=== PATIENT | male | born 1960 | race Caucasian/White ===

== ENCOUNTER 2022-12-26 05:16 | Emergency (ER) | payer BC, SELFPAY ==
[2022-12-26] VITALS (11 sets, daily range): BP systolic 160–175; BP diastolic 97–99; PULSE 66–91; RESP 17–20; TEMP 37.2; O2SAT 93–100
--- NOTE | ~2022-12-26 | CT_ITS ---
EXAMINATION: CT abdomen pelvis wo con DATE: 12/26/2022 06:25 INDICATION: Left flank pain. TECHNIQUE: Computed tomography (CT) of the abdomen and pelvis was performed without intravenous contr ast. Automated exposure control and iterative reconstruction technique were employed. The dose-length product was 1069.74 mGy-cm. COMPARISON: None. FINDINGS: The visualized portions of the lung bases demonstrate mild atelectasis. No pleural effusion . The heart size is normal. There are coronary artery calcifications. No pericardial effusion. There is a small sliding hiatal hernia. Calcifications in the liver and spleen are consistent with old gran ulomatous disease. There are changes of cholecystectomy. The pancreas, adrenal glands, and right kidn ey are normal. There is a 4 mm stone in left kidney. There is mild left hydronephrosis and hydrourete r. There is a 3 mm stone at left ureterovesicular junction. The prostate is mildly enlarged. There is diverticulosis of the colon without evidence of diverticulitis. There are surgical changes of the pr oximal colon. There is an umbilical hernia containing fat. There are no pathologically enlarged lymph nodes. There is no free intraperitoneal fluid. There is a left inguinal hernia containing fat. There is moderate lumbar spondylosis. There are bridging endplate osteophytes at multiple levels in the sp ine, consistent with diffuse idiopathic skeletal hyperostosis (DISH). IMPRESSION: 1. 3 mm stone at left ureterovesicular junction with mild left hydronephrosis and hydroureter. 2. Nonobstructing left kidney stone. Reviewed, dictated and finalized at location A. RONMENTAL ENGINEER SCIENTIST IMPRESSION: 1. 3 mm stone at left ureterovesicular junction with mild left hydronephrosis a nd hydroureter. 2. Nonobstructing left kidney stone.
[2022-12-26] MEDS: MORPHINE SULFATE (*CRX) 4 MG/ML INJ IV PUSH (06:16)
[2022-12-26] MEDS: ONDANSETRON INJ 4 MG/2 ML VIAL IV PUSH (06:16)
[2022-12-26] MEDS: SODIUM CHLORIDE 0.9% IV 1,000 ML 999 ML IV CONT (06:19)
--- NOTE | 2022-12-26 06:25 | ED.GENADULT ---
HPI - General Adult General Chief complaint: Unspecified <John Ko MD - Last Filed: 12/26/22 06:26> Stated complaint: pain from left flank to left lower abd <John Ko MD - Last Filed: 12/26/22 06:26> Time Seen by Provider: 12/26/22 05:59 <John Ko MD - Last Filed: 12/26/22 06:26> History of Present Illness HPI narrative: Patient 62-year-old gentleman who presents the emergency department with chief complaint of left-sided flank pain. Patient reports that he started having pain in the left flank. It radiates to the left lower quadrant. The patient reports the pain is sharp reports that is not improved by anything. The patient states that he has felt a little nauseated with this the patient reports that he talked to a family member who works in healthcare that suggested that this could be a kidney stone. Patient reports no prior history of kidney stone denies fever. <John Ko MD - Last Filed: 12/26/22 06:26> Related Data Allergies/adverse reactions: Allergies Allergy/AdvReac Type Severity Reaction Status Date / Time naproxen Allergy Intermediate HIVES, Verified 12/26/22 05:40 SWELLING <John Ko MD - Last Filed: 12/26/22 06:26> Review of Systems Review of Systems: A 10 system review of systems was completed on the patient and is negative except for what is stated in the HPI. Nursing and ancillary documentation was reviewed. <John Ko MD - Last Filed: 12/26/22 06:26> Exam Narrative: GENERAL: Well-appearing, well-nourished, and in moderate acute pain distress. HEAD: Normocephalic, atraumatic. EYES: PERRLA and EOMI. ENT: Nares clear, no rhinorrhea or epistaxis. Mucous membranes moist. NECK: Supple. CHEST: Clear to auscultation. No respiratory distress. HEART: Regular rate and rhythm. No murmur heard. Normal peripheral pulses. ABDOMEN: Soft, nontender, nondistended, normal active bowel sounds. EXTREMITIES: Normal range of motion. No edema. SKIN: Warm, dry, no rash. NEURO: No focal deficits. Alert and oriented x3. PSYCH: Normal mood and affect. <John Ko MD - Last Filed: 12/26/22 06:26> Course Vital Signs Vital signs: Vital Signs Temperature 98.9 F 12/26/22 05:18 Pulse Rate 91 12/26/22 05:18 Respiratory Rate 20 12/26/22 05:18 Blood Pressure 175/97 H 12/26/22 05:18 Pulse Oximetry 99 12/26/22 05:18 Oxygen Delivery Room Air 12/26/22 05:18 Temperature 98.9 F 12/26/22 05:18 Pulse Rate 66 12/26/22 05:38 Respiratory Rate 17 12/26/22 05:38 Blood Pressure 160/99 H 12/26/22 05:38 Pulse Oximetry 100 12/26/22 05:38 Oxygen Delivery Room Air 12/26/22 05:18 <John Ko MD - Last Filed: 12/26/22 06:26> Vital Signs Temperature 98.9 F 12/26/22 05:18 Pulse Rate 91 12/26/22 05:18 Respiratory Rate 20 12/26/22 05:18 Blood Pressure 175/97 H 12/26/22 05:18 Pulse Oximetry 99 12/26/22 05:18 Oxygen Delivery Room Air 12/26/22 05:18 Temperature 98.9 F 12/26/22 05:18 Pulse Rate 66 12/26/22 05:38 Respiratory Rate 17 12/26/22 05:38 Blood Pressure 160/99 H 12/26/22 05:38 Pulse Oximetry 100 12/26/22 05:38 Oxygen Delivery Room Air 12/26/22 05:18 <Joy Velazquez MD - Last Filed: 12/26/22 08:54> Medical Decision Making MDM Narrative Medical decision making narrative: ED COURSE AND MEDICAL DECISION MAKIN-year-old male presenting to the emergency department for acute flank pain, symptoms are concerning for likely renal colic versus pyelonephritis. Urinalysis is ordered. IV morphine / zofran given. CT scan of the abdomen/pelvis is ordered. Labs are remarkable for: no WBC/bacteria in UA; Cr wnl. CT scan of the abdomen/pelvis is reviewed by myself and interpreted by radiology: L UVJ 3mm stone On reevaluation, the patient still having some pain but appears more comf
[2022-12-26 06:48] LABS: Basophils Absolute Auto 0.1 K/mm3 (0.0-0.1); Basophils Percent Auto 0.6 % (0.2-1.2); Eosinophils Absolute Auto 0.1 K/mm3 (0-0.3); Eosinophils Percent Auto 0.6 % (0-4.4); Hematocrit 43.1 % (42.0-52.0); Immature Granulocyte Absolute 0.09 K/mm3 (0.00-0.031); Immature Granulocyte Percent A 0.8 % (0-0.5); Lymphocytes Percent Auto 14.2 % (18.3-44.2); Mean Corpuscular HGB Conc 32.5 g/dl (32-36); Mean Corpuscular Hemoglobin 29.9 pg (26-34); Mean Corpuscular Volume 92.1 fl (80-100); Mean Platelet Volume 10.6 fl (7.4-10.4); Monocytes Absolute Auto 0.8 K/mm3 (0.1-0.6); Monocytes Percent Auto 6.8 % (2.6-8.5); Neutrophils Absolute Auto 9.2 K/mm3 (1.3-6.7); Platelet Count Result 299 k/mm3 (150-375); Red Blood Count 4.68 M/mm3 (4.6-6.20); Red Cell Distribution Width 13.4 % (11.5-14.5)
[2022-12-26 06:54] LABS: Alanine Aminotransferase 44 U/L (6-50); Albumin Level 4.5 g/dL (3.5-5.1); Alkaline Phosphatase 82 U/L (38-126); Anion Gap 11 mmol/L (8-16); Aspartate Amino Transferase 33 U/L (17-59); Bilirubin,Total 1.2 mg/dL (0.2-1.3); Blood Urea Nitrogen 17 mg/dL (9-20); Calcium 9.5 mg/dL (8.4-10.2); Carbon Dioxide 26 mmol/L (22-30); Chloride 102 mmol/L (98-107); Estimated Glomerular Filt Rate > 60; Glucose 200 mg/dL (65-110); Lipase 40 U/L (23-300); Potassium 3.3 mmol/L (3.4-5.0); Sodium 139 mmol/L (137-145)
[2022-12-26] MEDS: HYDROmorphone HCL INJ (*CRX) 1 MG/ML SYR IV PUSH (07:03)
[2022-12-26 08:25] LABS: Appearance Urine Clear (Clear); Bilirubin Urine Negative (Negative); Blood Urine Negative (Negative); Color Urine Yellow (Yellow); Glucose Urine UA Trace mg/dL (Negative); Ketones Urine 1+ mg/dL (Negative); Leukocyte Esterase Ur Negative LEU/UL (Negative); Nitrate Urine Negative (Negative); Protein Urine Negative (Negative); Specific Grav Ur 1.019 (1.001-1.035); Urobilinogen Urine 0.2 mg/dL (<2.0)
[2022-12-26 08:34] LABS: Add Urine Microscopic? NO
[2022-12-26] MEDS: POTASSIUM CHLORIDE 20 MEQ PACKET (FOR LIQUID) 40 MEQ PO (09:18)
[2022-12-26] MEDS: TAMSULOSIN HCL 0.4 MG CAPSULE PO (09:18)
== END 2022-12-26 09:20 | disposition home or self-care (01) ==
PROVIDERS: Emergency Medicine; Emergency Provider Emergency Medicine; PCP Family Medicine
DX: N13.2 Hydronephrosis with renal and ureteral calculous obstruction (principal)
CPT/HCPCS: 36415; 74176; 80053; 81003; 83690; 85025; 96361; 96374; 96375; 99284; A9270; J1170; J2270; J2405; J7030

== ENCOUNTER 2024-01-03 09:39 | Outpatient (CLI) | payer BC, SELFPAY ==
--- NOTE | ~2024-01-03 | XR_ITS ---
XR abdomen/kub 1V Ordering provider: Jermain Mcconnell MD History: . HX OF KIDNEY STONES X 1 YEAR AGO, NO COMPLAINTS TODAY . Comparison: None. FINDINGS: BOWEL: Nonobstructive bowel gas pattern. ORGANOMEGALY: None. SIGNIFICANT PATHOLOGIC CALCIFICATIONS: None. OTHER: No free air is seen under the diaphragm. Degenerative changes of the spine. Mild osteoarthriti c changes of the hips. IMPRESSION: NO ACUTE ABDOMINAL FINDINGS. Reviewed, dictated and finalized at location A. EPERSON
== END 2024-01-03 09:40 | disposition home or self-care (01) ==
LOC: ANHIMG 09:43
PROVIDERS: PCP Family Medicine; Visit Provider Urology
DX: Z87.442 Personal history of urinary calculi (principal)
CPT/HCPCS: 74018

== ENCOUNTER 2024-12-28 13:41 | Outpatient (CLI) | payer MEDICARE, BC, SELFPAY ==
--- NOTE | ~2024-12-28 | CT_ITS ---
CT ABDOMEN AND PELVIS WITHOUT CONTRAST Clinical History: Hx of kidney stones Comparison: CT 12/26/2022 Abdominal film 01/03/2024 Technique: Unenhanced axial images lung bases to symphysis pubis Coronal, sagittal reformats CT images acquired with automatic exposure control for dose reduction DLP: 326 mGy-cm Findings: Without intravenous contrast, sensitivity for detecting visceral parenchymal abnormalities decreased. Lung bases: Clear. Visualized heart and pericardium: Unremarkable. Liver: Steatosis. Gallbladder: Removed. Spleen: Unremarkable. Pancreas: Unremarkable. Adrenal glands: Unremarkable. Kidneys: Right kidney- No hydronephrosis. No renal stones. Left kidney- No hydronephrosis. No renal stones. Parapelvic cysts. Chronic mild perinephric stranding. Distal esophagus/stomach: Unremarkable. Small bowel loops: Normal caliber and wall thickness. Colon: Diverticula. Suture line right side. Nodes: No enlarged nodes. Peritoneum: No ascites. No free intraperitoneal air. Urinary bladder: 7 mm stone left UVJ. Prostate: Unremarkable. Bones: No acute bony abnormality. Soft tissues: Umbilical hernia with fat. Unopacified abdominal aorta: No aneurysmal dilatation. IMPRESSION: 1. 7 mm stone left UVJ, but no associated hydronephrosis. 2. Additional findings as above. Reviewed, dictated and finalized at location R. RAM TECHNICIAN
--- OUTSIDE RECORDS SUMMARY | 2024-12-28 14:16 | XMS_ITS | Encounter Summary ---
Author Organization [facility] Address [address] [place] [address] Phone Care Team Providers Care Property Inspector Name Role Phone Reese Prince MD Primary Care Provider [phone] Juana Willson Primary Care Provider + Reese Prince MD Primary Care Provider [phone] Encounter Details Date Type Department Care Team (Latest Contact Info) Description 05/20/2017 Orders Only [facility] CONVERSION Scanning, Provider Social History Tobacco Use Types Packs/Day Years Used Date Smoking Tobacco: Never Sex and Gender Information Value Date Recorded Sex Assigned at Not on file Legal Sex Male 7:18 PM HOOK UP Gender Identity Not on file Sexual Orientation Not on file documented as of this encounter Plan of Treatment Upcoming Encounters Date Type Department Care Team (Latest Contact Info) Description 03/19/2025 7:30 AM HOOK UP Hospital Encounter [facility] OR [address] [place] [phone] David Smith MD [address] [place] [address] DR RODR[address]Z [address] [place] [address] 03/19/2025 7:30 AM HOOK UP - 03/19/2025 10:05 AM HOOK UP Surgery [facility] OR [address] [place] [address] David Smith MD [address] [place] [address] DR R[address]UE[address] [place] [phone] REVERSE LEFT TOTAL SHOULDER ARTHROPLASTY Scheduled Procedures Name Priority Associated Diagnoses Date/Ti me ARTHROPLASTY SHOULDER - REVERSE TOTAL Traumatic rotator cuff tear, left, subsequent encounter 03/19/2025 7:30 AM HOOK UP documented as of this encounter Procedures Procedure Name Priority Date/Time Associated Diagnosis Comments VASCULAR LABORATORY REPORT 05/30/2017 11:48 AM CDT VASCULAR LABORATORY REPORT 05/20/2017 8:06 AM CDT documented in this encounter Results * VASCULAR LABORATORY REPORT (05/30/2017 11:48 AM CDT) Anatomical Region Laterality Modality Ultrasound us Provider Scanning CV VASCULAR PROCEDURES Final R esult * VASCULAR LABORATORY REPORT (05/20/2017 8:06 AM CDT) Anatomical Region Laterality Modality Ultrasound us Provider Scanning CV VASCULAR PROCEDURES Final R esult documented in this encounter Visit Diagnoses Not on filedocumented in this encounter Care Teams Property Inspector Relationship Specialty Start Date End Date Reese Prince MD PCP - General 02/24/17 03/23/18 Juana Willson PA PCP - General 03/24/18 06/11/19 Reese Prince MD [address] [facility] [address] ROD[address]Z [address] [place] [address] PCP - General Family Medicine 12/26/24 documented as of this encounter
--- OUTSIDE RECORDS SUMMARY | 2024-12-28 14:16 | XMS_ITS | Encounter Summary ---
Author Organization [facility] Care Team Providers Care Perinatal Breastfeeding Assistant Name Role Phone Unknown, Notinfile Primary Care Provider Unavail able Reese Prince MD Primary Care Provider [phone] Juana Willson Primary Care Provider + Reese Prince MD Primary Care Provider [phone] Encounter Details Date Type Department Care Team (Latest Contact Info) Description 01/12/2017 Orders Only [facility] CLINCONV ProviderAlban MD [address] [place] [address] Social History Tobacco Use Types Packs/Day Years Used Date Smoking Tobacco: Never Assessed Sex and Gender Information Value Date Recorded Sex Assigned at Not on file Legal Sex Male 7:18 PM MARKETING OPERATIONS ANALYST Gender Identity Not on file Sexual Orientation Not on file documented as of this encounter Plan of Treatment Upcoming Encounters Date Type Department Care Team (Latest Contact Info) Description 03/19/2025 7:30 AM MARKETING OPERATIONS ANALYST Hospital Encounter [facility] [place] [address] [place] [address] David Smith MD [address] [place] [address] DR [address] [place] [address] 03/19/2025 7:30 AM MARKETING OPERATIONS ANALYST - 03/19/2025 10:05 AM MARKETING OPERATIONS ANALYST Surgery [facility] OR [address] [place] [address] David Smith MD [address] [place] [address] DR R[address] [place] [address] REVERSE LEFT TOTAL SHOULDER ARTHROPLASTY Scheduled Procedures Name Priority Associated Diagnoses Date/Ti me ARTHROPLASTY SHOULDER - REVERSE TOTAL Traumatic rotator cuff tear, left, subsequent encounter 03/19/2025 7:30 AM MARKETING OPERATIONS ANALYST documented as of this encounter Procedures Procedure Name Priority Date/Time Associated Diagnosis Comments PROCEDURE - RESULT 01/12/2017 12 :00 AM MARKETING OPERATIONS ANALYST PROCEDURE - RESULT 01/12/2017 12 :00 AM MARKETING OPERATIONS ANALYST documented in this encounter Results * PROCEDURE - RESULT (01/12/2017 12:00 AM MARKETING OPERATIONS ANALYST) Narrative 01/12/2017 12:00 AM MARKETING OPERATIONS ANALYST Ordered by an unspecified provider. Historical Provider Final Res ult * PROCEDURE - RESULT (01/12/2017 12:00 AM MARKETING OPERATIONS ANALYST) Narrative 01/12/2017 12:00 AM MARKETING OPERATIONS ANALYST Ordered by an unspecified provider. Historical Provider Final Res ult documented in this encounter Visit Diagnoses Not on filedocumented in this encounter Care Teams Perinatal Breastfeeding Assistant Relationship Specialty Start Date End Date Unknown, Notinfile PCP - General 01/22/17 02/23/17 Reese Prince MD PCP - General 02/24/17 03/23/18 Juana Willson PA PCP - General 03/24/18 06/11/19 Reese Prince MD [address] [facility] [place] [address] PCP - General Family Medicine 12/26/24 documented as of this encounter
--- OUTSIDE RECORDS SUMMARY | 2024-12-28 14:16 | XMS_ITS | Clinical Summary ---
Author Organization [facility] Address [address] [facility] [place] [address] Care Team Providers Care Grooving Machine Operator Name Role Phone Unavailable Primary Care Provider Unavailabl e Source Comments [facility],non-owned Affiliates and Associated Physician Practices is amultiple site organization consisting of ambulatory clinics and hospital sitesin [place], [place], [place]. This disclosure is being madepursuant to the Care Everywhere program and may not contain all information available regarding this patient. Last updated 17.[facility] Social History Tobacco Use Types Packs/Day Years Used Date Smoking Tobacco: Never Assessed Sex and Gender Information Value Date Recorded Sex Assigned at Not on file Legal Sex Male 4:31 PM CDT Gender Identity Not on file Sexual Orientation Not on file Plan of Treatment Health Maintenance Due Date Last Done Comments COLOGUARD (AGES 45-75) - COL ON CA SCREENING 1960 COLON MONITORING 1960 COLONOSCOPY - COLON CA SCREENING 1960 CT COLONOGRAPHY - COLON CA SCREENING 1960 Colorectal Cancer Screening 1960 FIT - COLON CA SCREENING 1960 FLEX SIG - COLON CA SCREENING 1960 LIPID TESTING 1960 HIV SCREENING 01/25/1975 HEPATITIS C SCREENING 01/21/1978 DTAP/TDAP/TD VACCINES (1 - Tdap) 01/25/1979 PNEUMOCOCCAL VACCINE 50+ (1 of 1 - PCV) 01/25/2010 ZOSTER VACCINE (1 of 2) 01/25/2010 DEPRESSION SCREENING 02/16/2024 COVID-19 VACCINE (1 - 2023-2 5 season) 2024 INFLUENZA VACCINE (#1) 2024 Respiratory Syncytial Virus (RSV) Vaccine Pt: or over 60 yrs (1 - 1-dose 75+ series) 01/25/2035 HEPATITIS B VACCINE Aged Out No longe r eligible based on patient's age to complete this topic HIB VACCINE Aged Out No longer eligi ble based on patient's age to complete this topic HPV VACCINE Aged Out No longer eligi ble based on patient's age to complete this topic MENINGOCOCCAL (Group B) VACC INE SHARED DECISION-MAKING Aged Out No longer eligibl e based on patient's age to complete this topic MENINGOCOCCAL GROUPS A/C/Y/W VACCINE Aged Out No longer eligible b ased on patient's age to complete this topic Insurance [facility] Address: [facility] [address] [place] [address]
--- OUTSIDE RECORDS SUMMARY | 2024-12-28 14:16 | XMS_ITS | Encounter Summary ---
Author Organization [facility] Address [address] [facility] [place] [address] Care Team Providers Care Security Compliance Engineer Name Role Phone Unavailable Primary Care Provider Unavailabl e Encounter Details Date Type Department Care Team (Late st Contact Info) Description 10/30/2022 Lab Requisition [facility] [address] [facility] [place] [id number] Chris Snyder MD [address] [facility] [place] [address] Social History Tobacco Use Types Packs/Day Years Used Date Smoking Tobacco: Never Assessed Sex and Gender Information Value Date Recorded Sex Assigned at Not on file Legal Sex Male 4:31 PM CDT Gender Identity Not on file Sexual Orientation Not on file documented as of this encounter Plan of Treatment Not on file documented as of this encounter Procedures Procedure Name Priority Date/Time Associated Diagnosis Comments DERMATOPATHOLOGY Routine 10/30/2022 3:33 AM CDT documented in this encounter Results * DERMATOPATHOLOGY (10/30/2022 3:33 AM CDT) Case Report Dermatopathology Report Case: [id number] Authorizing Provider: Chris Snyder MD Collected: 10/30/2022 03:33 AM Ordering Location: [facility] Received: 11/02/2022 06:06 AM Pathologist: Jody Thomas MD Specimen: Skin, right volar FA 3 4:32 PM CDT DERMATOPATHOLOGY LABORATORY Final Diagnosis Specimen A. SKIN, right volar FA: SUBACUTE SPONGIOTIC DERMATITIS (L30.8) (see microscopic description and comment) 3 4:32 PM CDT DERMATOPATHOLOGY LABORATORY at 1632 CDT Clinical History PMLE vs Eczema vs Allergic contact (ACD) Path#[id number] 3 4:32 PM CDT DERMATOPATHOLOGY LABORATORY Gross Description Specimen A: Received is one formalin filled container labeled with the patient's name and designated right volar FA. The specimen consists of a shave biopsy measuring 7x5x1 mm. Jar 0. 3 4:32 PM CDT DERMATOPATHOLOGY LABORATORY Microscopic Description Specimen A. SKIN, right volar FA: There is focal parakeratosis and spongiosis of the epidermis. In the dermis there is a mainly superficial perivascular lymphoid infiltrate. Eosinophils are not seen. Focal mild superficial dermal edema is present. Periodic acid-Derek (PAS) stain fails to highlight fungal elements or significant basement membrane thickening in the available sections. COMMENT: These histologic differential diagnosis includes an eczematous dermatitis, and a hypersensitivity reaction, such as to contact or drug, although less likely given the lack of eosinophils. Although less favored given the lack of more significant papillary dermal edema, early polymorphous light eruption cannot be entirely excluded. 3 4:32 PM CDT DERMATOPATHOLOGY LABORATORY Disclaimer An external and internal positive and negative controls are appropriate for the histochemical, immunohistochemical and immunofluorescence stain(s) in this case (if any), except where stated explicitly. The performance characteristics of the stain(s) cited in this report were developed and its performance characteristic determined by the Dermatopathology Laboratory at [facility], directed by Dr. Irasema Caban. These tests need not be, and therefore are not, approved by the [place] Food and Drug Administration. The tests are used for clinical purposes. Billing Codes Specimen Charges Stain Charges 32047 1 11097 1 3 4:32 PM CDT DERMATOPATHOLOGY LABORATORY Embedded Images 3 4:32 PM CDT DERMATOPATHOLOGY LABORATORY Pathology/Cytolo gy TISSUE SPECIMEN FROM SKIN / Unknown 10/30/2022 3:33 AM CDT 11/02/2022 6:06 AM CDT us Chris Snyder MD LAB - PATHOLOGY/CYTOLOGY ORDER SERINA Final Result DERMATOPATHOLOGY LABORATORY [facility] - Department of Dermatology [address] [place] [address], [facility] [phone] documented in this encounter Visit Diagnoses Not on filedocumented in this encounter
--- OUTSIDE RECORDS SUMMARY | 2024-12-28 14:16 | XMS_ITS | Clinical Summary ---
Author Organization [facility] Address [address] [place] [address] Care Team Providers Care Cashier Associate Name Role Phone Unavailable Primary Care Provider Unavailabl e Social History Tobacco Use Types Packs/Day Years Used Date Smoking Tobacco: Never Assessed Sex and Gender Information Value Date Recorded Sex Assigned at Not on file Legal Sex Male 7:35 PM CDT Gender Identity Not on file Sexual Orientation Not on file Plan of Treatment Health Maintenance Due Date Last Done Comments Colorectal Cancer Screening Colonoscopy (10 Years) 1960 Annual Physical 01/25/1963 Hepatitis C 01/25/1978 DTaP, Tdap and Td Vaccines (1 - Tdap) 01/25/1979 COVID-19 Vaccine ( season) 2024 05/25/2020, 05/01/2020 Influenza Adult (#1) 2024 10/25/2023, 12/12/2021, 11/15/2021, Additional history exists RSV Immunization or 60+ Years (1 - 1-dose 75+ series) 01/25/2035 Zoster Vaccines Completed 03/01/2022, 12/31/2021 Pneumococcal Vaccine: 50+ Years Completed 12/21/2023 Hepatitis A Vaccines Aged Out No long er eligible based on patient's age to complete this topic Meningococcal B Vaccine Aged Out No l onger eligible based on patient's age to complete this topic Meningococcal Vaccine Aged Out No roberto pasha eligible based on patient's age to complete this topic RSV Immunizations Under 20 Months Aged Out No longer eligible based on patient's age to complete this topic Insurance [facility]
--- OUTSIDE RECORDS SUMMARY | 2024-12-28 14:16 | XMS_ITS | Encounter Summary ---
Author Organization [facility] Facility Care Team Providers Care Senior Systems Architect Name Role Phone Unknown, Notinfile Primary Care Provider Unavail able Reese Prince MD Primary Care Provider [phone] Juana Willson Primary Care Provider + Reese Prince MD Primary Care Provider [phone] Encounter Details Date Type Department Care Team (Latest Contact Info) Description 07/10/2015 Orders Only [facility] CLINCONV ProviderAlban MD [address] [place] [id number] Social History Tobacco Use Types Packs/Day Years Used Date Smoking Tobacco: Never Assessed Sex and Gender Information Value Date Recorded Sex Assigned at Not on file Legal Sex Male 7:18 PM INSURANCE VERIFY REP Gender Identity Not on file Sexual Orientation Not on file documented as of this encounter Plan of Treatment Upcoming Encounters Date Type Department Care Team (Latest Contact Info) Description 03/19/2025 7:30 AM INSURANCE VERIFY REP Hospital Encounter [facility] [place] [address] [place] [id number] David Smith MD [address] [place] [address] DR RODRIGUEZ [address] [place] [phone] 03/19/2025 7:30 AM INSURANCE VERIFY REP - 03/19/2025 10:05 AM INSURANCE VERIFY REP Surgery [facility] OR [address] [place] [phone] David Smith MD [address] [place] [address] DR RODRIGUEZ [address] [place] [id number] REVERSE LEFT TOTAL SHOULDER ARTHROPLASTY Scheduled Procedures Name Priority Associated Diagnoses Date/Ti me ARTHROPLASTY SHOULDER - REVERSE TOTAL Traumatic rotator cuff tear, left, subsequent encounter 03/19/2025 7:30 AM INSURANCE VERIFY REP documented as of this encounter Procedures Procedure Name Priority Date/Time Associated Diagnosis Comments PROCEDURE - RESULT 07/12/2015 12 :00 AM CDT documented in this encounter Results * PROCEDURE - RESULT (07/12/2015 12:00 AM CDT) Narrative 07/12/2015 12:00 AM CDT Ordered by an unspecified provider. us Historical Provider Final Res ult documented in this encounter Visit Diagnoses Not on filedocumented in this encounter Care Teams Senior Systems Architect Relationship Specialty Start Date End Date Unknown, Notinfile PCP - General 01/22/17 02/23/17 Reese Prince MD PCP - General 02/24/17 03/23/18 Juana Willson PA PCP - General 03/24/18 06/11/19 Reese Prince MD [address] [facility] [address] [address] RODRIGUEZ [address] [place] [id number] PCP - General Family Medicine 12/26/24 documented as of this encounter
--- OUTSIDE RECORDS SUMMARY | 2024-12-28 14:16 | XMS_ITS | Encounter Summary ---
Author Organization [facility] Address [address] [place] [address] Phone Care Team Providers Care Machine Farmworker Name Role Phone Reese Prince MD Primary Care Provider [phone] Juana Willson Primary Care Provider + Reese Prince MD Primary Care Provider [phone] Encounter Details Date Type Department Care Team (Latest Contact Info) Description 03/13/2017 Orders Only [facility] CONVERSION Scanning, Provider Social History Tobacco Use Types Packs/Day Years Used Date Smoking Tobacco: Never Assessed Sex and Gender Information Value Date Recorded Sex Assigned at Not on file Legal Sex Male 7:18 PM CASE CHECKER Gender Identity Not on file Sexual Orientation Not on file documented as of this encounter Plan of Treatment Upcoming Encounters Date Type Department Care Team (Latest Contact Info) Description 03/19/2025 7:30 AM CASE CHECKER Hospital Encounter [facility] [place] [address] [place] [id number] David Smith MD [address] [place] [address] [address] RODRIGUEZ [address] [place] [phone] 03/19/2025 7:30 AM CASE CHECKER - 03/19/2025 10:05 AM CASE CHECKER Surgery [facility] [place] [address] [place] [phone] David Smith MD [address] [place] [address] [address] RODRIGUEZ [address] [place] [phone] REVERSE LEFT TOTAL SHOULDER ARTHROPLASTY Scheduled Procedures Name Priority Associated Diagnoses Date/Ti me ARTHROPLASTY SHOULDER - REVERSE TOTAL Traumatic rotator cuff tear, left, subsequent encounter 03/19/2025 7:30 AM CASE CHECKER documented as of this encounter Procedures Procedure Name Priority Date/Time Associated Diagnosis Comments VASCULAR LABORATORY REPORT 03/13/2017 4:50 PM CASE CHECKER documented in this encounter Results * VASCULAR LABORATORY REPORT (03/13/2017 4:50 PM CASE CHECKER) Anatomical Region Laterality Modality Ultrasound us Provider Scanning CV VASCULAR PROCEDURES Final R esult documented in this encounter Visit Diagnoses Not on filedocumented in this encounter Care Teams Machine Farmworker Relationship Specialty Start Date End Date Reese Prince MD PCP - General 02/24/17 03/23/18 Juana Willson PA PCP - General 03/24/18 06/11/19 Reese Prince MD [address] [facility] [address] RODRIG[address]Z [address] [place] [id number] PCP - General Family Medicine 12/26/24 documented as of this encounter
--- OUTSIDE RECORDS SUMMARY | 2024-12-28 14:16 | XMS_ITS | Clinical Summary ---
Author Organization [place] [id number] [facility] Address [address] [place] [address] Care Team Providers Care Burr Picker Name Role Phone Reese Prince MD Primary Care Provider [phone] Allergies Active Allergy Reactions Criticality Noted Date Comments Naproxen Hives Medium 07/12/2018 Medications tamsulosin (FLOMAX) 0.4 mg extended release capsule Take 1 capsule (0.4 mg total) by mouth nightly 3 Active omeprazole (PriLOSEC) 20 mg capsule Take 1 capsule (20 mg total) by mouth daily 5 Active escitalopram (LEXAPRO) 10 mg tablet Take 1 tablet (10 mg total) by mouth nightly 5 Active ibuprofen (ADVIL,MOTRIN) 600 mg tablet Take 1 tablet (600 mg total) by mouth every 6 (six) hours as needed for pain Active amlodipine-olmes binh (LIZZIE) 5-20 mg per tabletIndication s:Essential (primary) hypertension Take 2 tablets by mouth daily 180 tablet 1 5 Active finasteride (PROSCAR) 5 mg tablet Take 1 tablet (5 mg total) by mouth daily 90 tablet 1 5 Active efinaconazole 10 % solution with applicatorIndica tions:Onychomyco sis Apply 1 Application topically daily 4 mL 1 5 Active rosuvastatin (CRESTOR) 5 mg tabletIndication s:Elevated LDL cholesterol level TAKE 1 TABLET(5 MG) BY MOUTH DAILY 90 tablet 1 5 Active Hospital, Clinic, or Other Facility Administered Medication Ordered Dose Route Frequency Start Date End Date Status lidocaine (XYLOCAINE) 10 mg/mL (1 %) injection 2 mLIndications:Admi nistration of Local Anesthesia 2 mL One-Time Injection 12/12/2024 12/12/2024 Ended methylPREDNISolone acetate (DEPO-medrol) injection 40 mgIndications:Bipin angel complete tear of left rotator cuff, subsequent encounter 40 mg intra-artic One-Time Injection 12/12/2024 12/12/2024 Ended Active Problems Problem Noted Date Diagnosed Date Traumatic rotator cuff tear, left, subsequent en counter 12/13/2024 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 He had CT abdomen/pelvis in 10/2020 initially read has enlarging dilated appendix with peripheral calcification concerning for mucocele or malignancy. When called patient reported appendectomy - radiology reread the CT scan and stated there was enlargement of blind ended fluid filled loop of bowel. Will recheck CT abdomen/pelvis with contrast to ensure stability. Chronic pain of both shoulders 05/13/2020 Assessment & Plan (06/22/2024 1:58 PM CDT): Not at goal Intermittent shoulder pain worsened by lifting. Previous cortisone injections administered. Surgery recommended but not pursued. - Contact Mariajose for potential shoulder injections. - Tizanidine 4mg q6h PRN Varicose veins of left lower extremity with pain 10/17/2019 Overview (10/17/2019): Added automatically from request for surgery [id number] Primary osteoarthritis of left knee 08/22/2018 Vitamin D deficiency 12/16/2016 Degenerative disc disease, lumbar 07/22/2016 Generalized anxiety disorder 06/10/2016 Assessment & Plan (04/14/2021 2:16 PM LAST MODEL MAKER): Increased stress with pandemic and caring for his mother. Will start lexapro 10 mg QHS. Discussed with patient about common side effects of medication including potential for worsening symptoms or new/worsening suicidal thoughts. Should this occur, patient should stop the medication immediately and call/RTC or go to ER. Medications for depression/anxiety can take up to 4-6 weeks to reach maximum effectiveness in the body. Call office to report any concerning side effects or new/worsening symptoms. Other chronic pain 06/10/2016 Hyperlipidemia 12/25/2015 Essential (primary) hypertension 05/21/2015 Assessment & Plan (06/22/2024 1:59 PM CDT): Not at goal BP Readings from Last 1 Encounters: 06/22/24 158/96 BP Goal: <64yo: <130/90, 65>: 140/90 Continue amlodipine/olmesartan 5/20mg 2 tabs daily Possibly elevated d/t stress and pain Assessment & Plan (04/14/2021 2:18 PM LAST MODEL MAKER): Well controlled. Continue current regimen. GERD (gastroesophageal reflux disease) 6 Benign prostate hyperplasia Assessment & Plan (04/14/2021 1:43 PM LAST MODEL MAKER): Follows with urology, Dr. Mcconnell, and on finasteride. Doing well. Resolved Problems Problem Noted Date Diagnosed Date Resolved Date Neck pain on left side 06/22/202407/24 Assessment & Plan (06/22/2024 2:01 PM CDT): Not at goal Persistent neck pain likely due to muscle tightness. Previous cortisone injections were not in the neck. Muscle relaxers and ibuprofen discussed. - Prescribe tizanidine 4 mg q6h PRN - Prescribe ibuprofen 600mg TID. Take with food and drink plenty of fluids. - Defer handicap placard as patient is able to walk greater than 200ft without assistance of person or device at this time. Overweight with body mass in dex (BMI) of 28 to 28.9 in adult 06/22/2024 07/24/2024 Assessment & Plan (06/22/2024 1:59 PM CDT): Not at goal Weight management struggle due to joint pain and caregiving. BMI 28. Discussed dietary modifications and insurance coverage for weight loss injectables. Phentermine not suitable due to elevated blood pressure. - Check with insurance regarding coverage for weight loss injectables like Wegovy. - Focus on dietary modifications with high-protein, high-fiber, and low-calorie foods. Try to cut back on calories. Most people should eat between 0931-6442 calories to lose weight. Decrease your carbohydrate intake to less than 100-150 grams per day if possible and increase protein to at least 100 grams per day help with hunger. Increase activity to 30 min 4-5 days a week and add strength training 2 times weekly. Abdominal mass, right lower quadrant 07/02/2021 04/28/2022 Varicose veins of lower extremity 02/25/2017 07/24/2024 Encounters Date Type Department Care Team Description 12/26/2024 2:15 PM LAST MODEL MAKER Office Visit [facility] at [address] [place] [address] Reese Prince MD Annual physical exam (Primary Dx); Mixed hyperlipidemia; Screening, heart disease, ischemic 12/15/2024 Orders Only [facility] [address] [place] [address] [address] [place] [address] David Smith MD Traumatic complete tear of left rotator cuff, subsequent encounter (Primary Dx); Primary osteoarthritis, left shoulder 12/12/2024 1:00 PM CDT Office Visit [facility] [address] [place] [address] [address] [place] [address] David Smith MD Traumatic complete tear of left rotator cuff, subsequent encounter (Primary Dx) 11/30/2024 12:27 PM CDT - 11/30/2024 11:59 PM CDT Hospital Encounter [facility] [address] [place] [address] Chronic left shoulder pain Discharge Disposition: Discharge to home or self care 11/30/2024 12:27 PM CDT - 11/30/2024 11:59 PM CDT Hospital Encounter [facility] [address] [place] [address] David Smith MD Chronic left shoulder pain Discharge Disposition: Discharge to home or self care 11/27/2024 Telephone [facility] [address] [place] [address] Ney Roberts PA 11/06/2024 2:30 PM CDT Office Visit [facility] [address] [place] [phone] Mariajose Perkins NP Primary tricompartmental osteoarthritis of left knee; Effusion of left knee 10/04/2024 Telephone [facility] [address] [place] [address] David Smith MD from Last 3 Months Immunizations Immunization Administration Dates Next Due Influenza, Quadrivalent, Christa l Culture-based MDCK, Preservative Free, Antibiotic Free, Intramuscular 11/20/2019 Influenza, Quadrivalent, Spl it, Preservative Free, Intramuscular 12/12/2021,11/10/2020 Influenza, Trivalent, Preser vative Free, Intramuscular 10/25/2023 Influenza, Unspecified 12/04/2022,2021,11/15/2020,11/15 Pneumococcal Conjugate Pcv20 12/21/2023 ZOSTER Recombinant 03/01/2022,12/31/2021 Surgical History Surgery Date Site/Laterality Comments FOOT SURGERY Left EXTREMITY CYST EXCISION shoulder/neck/forehead SKIN CANCER EXCISION forehead APPENDECTOMY 02/16/2004 - 02/14/2005 Appendectomy with partial bowel obstruction CHOLECYSTECTOMY 02/15/2005 - 02/14/2006 COLONOSCOPY 06/2021 Medical History Medical History Date Comments Hypertension Osteoarthritis Hypercholesteremia Anxiety Sleep apnea, obstructive Benign prostate hyperplasia Lumbar spondylosis Lumbar facet arthropathy Allergic rhinitis Wears glasses reading BPH (benign prostatic hyperplasia) Arthritis PONV (postoperative nausea and vomiting) Cancer (HCC) skin CA Primary osteoarthritis of both shoulders Strain of cervical portion of both trapezius mus cles 09/17/2021 Cervical spondylosis DDD (degenerative disc disease), cervical 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 Family History Medical History Relation Name Comments Diabetes Father Blood Clot Mother Heart disease Mother Hypertension Mother Diabetes Other Relation Name Status Comments Father Mother Alive Other Social History Tobacco Use Types Packs/Day Years Used Date Smoking Tobacco: Never Passive Smoke Exposure: Never Smokeless Tobacco: Never Tobacco Cessation:Counseling Given: No Alcohol Use Standard Drinks/Week Comments Never 0 (1 standard drink = 0.6 oz pur e alcohol) PHQ-2 Answer Date Recorded PHQ-2 Total Score (If total score is 3 or more points, staff should administer the PHQ-9) 0 06/22/2024 AUDIT-C Answer Date Recorded Q1: How often do you have a drink containing alcohol? Never 12/26/2024 Q2: How many drinks containi ng alcohol do you have on a typical day when you are drinking? Patient does not drink Q3: How often do you have si x or more drinks on one occasion? Never 12/26/2024 Sex and Gender Information Value Date Recorded Sex Assigned at Not on file Legal Sex Male 7:18 PM LAST MODEL MAKER Gender Identity Not on file Sexual Orientation Not on file Last Filed Vital Signs Vital Sign Reading Time Taken Comments Blood Pressure 138/78 12/26/2024 2:27 PM LAST MODEL MAKER Pulse 73 12/26/2024 2:27 PM LAST MODEL MAKER Temperature 36.7 C (98 F) 12/26/2024 2:27 PM LAST MODEL MAKER Respiratory Rate 16 12/26/2024 2:27 PM LAST MODEL MAKER Oxygen Saturation 99% 12/26/2024 2:27 PM LAST MODEL MAKER Inhaled Oxygen Concentration - - Weight 91.8 kg (202 lb 6.4 oz) 12/26/2024 2:27 P M LAST MODEL MAKER Height 180.3 cm (5' 11) 12/26/2024 2:27 PM LAST MODEL MAKER Body Mass Index 28.23 12/26/2024 2:27 PM LAST MODEL MAKER Plan of Treatment Upcoming Encounters Date Type Department Care Team (Latest Contact Info) Description 03/19/2025 7:30 AM LAST MODEL MAKER Hospital Encounter [facility] OR [address] [place] [address] David Smith MD [address] [place] [address] 03/19/2025 7:30 AM LAST MODEL MAKER - 03/19/2025 10:05 AM LAST MODEL MAKER Surgery [facility] OR [address] [place] [address] David Smith MD [address] [facility] [place] [address] REVERSE LEFT TOTAL SHOULDER ARTHROPLASTY Scheduled Procedures Name Priority Associated Diagnoses Date/Ti me ARTHROPLASTY SHOULDER - REVERSE TOTAL Traumatic rotator cuff tear, left, subsequent encounter 03/19/2025 7:30 AM LAST MODEL MAKER Health Maintenance Due Date Last Done Comments Hepatitis C Screening 1960 DTaP/Tdap/Td Vaccine (1 - Tdap) 01/25/1971 Hepatitis B Screening 01/25/1978 Covid-19 Vaccine ( season) 2024 12/12/2021, 12/29/2020, 05/25/2020, Additional history exists Depression Screening 06/22/2025 06/22/2024, 07/14/2022, 04/14/2021, Additional history exists Influenza Vaccine (#1) 2025 , 12/04/2022, 12/12/2021, Additional history exists Postponed from 10/16/2024 (Patient declined, but will receive in the future) Regular Well Visit/Exam 18-64 12/26/2025 12/26/2024, 12/21/2023 Prostate Cancer Screening-PSA 07/26/2026 07/26/2024, 02/05/2021, 06/05/2019, Additional history exists Colon Cancer Screening-Colonoscopy 03/14/2027 03/14/2024, 03/07/2024, 06/16/2021, Additional history exists Zoster Vaccine Completed 03/01/2022, 12/31/2021 Pneumococcal vaccine <65 Aged Out 12/21/2023 No longer eligible based on patient's age to complete this topic Colon Cancer Screening-CT Colonography Discontinued 03/14/2024, 03/07/2024, 06/16/2021, Additional history exists Colon Cancer Screening-DNA Stool Discontinued 03/14/2024, 03/07/2024, 06/16/2021, Additional history exists Colon Cancer Screening-FIT Discontinued 03/14, 03/07/2024, 06/16/2021, Additional history exists Colon Cancer Screening-Sigmoidoscopy Discontinued 03/14/2024, 03/07/2024, 06/16/2021, Additional history exists Procedures Procedure Name Priority Date/Time Associated Diagnosis Comments ID ARTHROCENTESIS ASPIR&/INJ MAJOR JT/BURSA W/O US Routine 12/12/2024 1:00 PM CDT Traumatic complete tear of left rotator cuff, subsequent encounter CT ARTHROGRAM SHOULDER LEFT W CONTRAST Schedule Routine, Read Routine (OP Routine) 11/30/2024 2:11 PM CDT Chronic left shoulder pain INJECTION SHOULDER LEFT ARTHRO ONLY Schedule Routine, Read Routine (OP Routine) 11/30/2024 1:40 PM CDT Chronic left shoulder pain ID ARTHROCENTESIS ASPIR&/INJ MAJOR JT/BURSA W/O US Routine 11/06/2024 2:30 PM CDT Primary tricompartmental osteoarthritis of left knee ID ARTHROCENTESIS ASPIR&/INJ MAJOR JT/BURSA W/O US Routine 11/06/2024 2:30 PM CDT Effusion of left knee PSA SCREEN Routine 07/26/2024 10:04 AM CDT Essential (primary) hypertension COLONOSCOPY Routine 03/14/2024 10:29 AM LAST MODEL MAKER from Last 3 Months or Most Recently Relevant to Health Maintenance Results * ID ARTHROCENTESIS ASPIR&/INJ MAJOR JT/BURSA W/O US (12/12/2024 1:00 PM CDT) Narrative David Smith MD - 12/12/2024 1:00 PM CDT David Smith MD 12/12/2024 4:26 PM Large Joint (Hip, Knee, Shoulder) Injection: L subacromial bursa Performed by: David Smith MD Authorized by: David Smith MD Large Joint Injection/Aspiration: Consent Given by: Patient Written consent obtained: Yes Supporting Documentation: Indications: Pain Procedure Details: Location: Shoulder Site: L subacromial bursa Prep: patient was prepped using a clean technique (The skin was anesthetized with ethyl chloride spray prior to the injection.) Needle Size: 25 G Medications: 2 mL lidocaine 10 mg/mL (1 %); 40 mg methylPREDNISolone acetate 40 mg/mL Patient tolerance: Patient tolerated the procedure well with no immediate complications us David Smith MD IN CLINIC/BEDSIDE ORDERABL ES Final Result * CT Arthrogram Shoulder Left (11/30/2024 2:11 PM CDT) Anatomical Region Laterality Modality Shoulder Left Computed Tomogra phy 11/30/2024 2:40 PM CDT Narrative 11/30/2024 2:45 PM CDT EXAM DESCRIPTION: CT ARTHROGRAM SHOULDER LEFT REASON FOR STUDY: Left shoulder pain, Chronic left shoulder pain TECHNIQUE: Multidetector CT of the left shoulder was performed after intra-articular administration of iodinated contrast. Coronal and Sagittal reformatted images were obtained. Automated exposure control was used as a dose optimization technique for this examination. COMPARISON: Radiographs 07/20/2024 FINDINGS: Type 2 acromion is present with chronic remodeling. Severe acromioclavicular joint osteoarthritis with chondrocalcinosis. Moderate subscapularis, and mild supraspinatus and infraspinatus chronic fatty atrophy. High-grade tear of the subscapularis is present with medial retraction. Large 5.5 x 5 cm full-thickness tear of the supraspinatus and infraspinatus present with torn tendon margins retracted to the glenoid. Degenerative tear of the superior glenoid labrum. Partial-thickness cartilage loss of the humeral head. Mild shoulder synovitis. No loose bodies. No suspicious axillary lymphadenopathy. Arterial atherosclerosis and old granulomatous disease are present. Limited evaluation of the left lung demonstrates dependent atelectasis. Dental caries are noted. IMPRESSION: 1. Large 5.5 x 5 cm full-thickness tear of the left supraspinatus and infraspinatus with torn tendon margins retracted to the glenoid. 2. High-grade tear of the left subscapularis with medial retraction. 3. Moderate subscapularis, and mild supraspinatus and infraspinatus chronic fatty atrophy. 4. Severe left acromioclavicular joint osteoarthritis with chondrocalcinosis. 5. Mild left glenohumeral joint osteoarthritis with mild synovitis. THIS IS AN ELECTRONICALLY VERIFIED FINAL REPORT 11/30/2024 2:45 PM - Electronically signed by Musa Youssef M.D. T: Report ID: [id number] Reading Location: [id number] Procedure Note Musa Youssef MD - 11/30/2024 EXAM DESCRIPTION: CT ARTHROGRAM SHOULDER LEFT REASON FOR STUDY: Left shoulder pain, Chronic left shoulder pain TECHNIQUE: Multidetector CT of the left shoulder was performed after intra-articular administration of iodinated contrast. Coronal andSagittal reformatted images were obtained. Automated exposure control was used asa dose optimization technique for this examination. COMPARISON: Radiographs 07/20/2024 FINDINGS: Type 2 acromion is present with chronic remodeling. Severe acromioclavicular joint osteoarthritis with chondrocalcinosis. Moderate subscapularis, and mild supraspinatus and infraspinatus chronicfatty atrophy. High-grade tear of the subscapularis is present with medial retraction. Large 5.5 x 5 cm full-thickness tear of the supraspinatus and infraspinatus present with torn tendon margins retracted to the glenoid. Degenerative tear of the superior glenoid labrum. Partial-thicknesscartilage loss of the humeral head. Mild shoulder synovitis. No loose bodies. No suspicious axillary lymphadenopathy. Arterial atherosclerosis and old granulomatous disease are present. Limited evaluation of the left lung demonstrates dependent atelectasis. Dental caries are noted. IMPRESSION: 1. Large 5.5 x 5 cm full-thickness tear of the left supraspinatus and infraspinatus with torn tendon margins retracted to the glenoid. 2. High-grade tear of the left subscapularis with medial retraction. 3. Moderate subscapularis, and mild supraspinatus and infraspinatuschronic fatty atrophy. 4. Severe left acromioclavicular joint osteoarthritis withchondrocalcinosis. 5. Mild left glenohumeral joint osteoarthritis with mild synovitis. THIS IS AN ELECTRONICALLY VERIFIED FINAL REPORT 11/30/2024 2:45 PM - Electronically signed by Musa Youssef M.D. T: Report ID: [id number] Reading Location: [id number] David Smith MD [facility] CT PROCEDURES Final Re sult * Injection Shoulder Left Arthro Only (11/30/2024 1:40 PM CDT) Anatomical Region Laterality Modality Shoulder Left Computed Radiogr aphy, Computed Radiography 11/30/2024 4:33 PM CDT Narrative 11/30/2024 4:47 PM CDT EXAM DESCRIPTION: 1. Left glenohumeral joint injection for arthrography 2. Fluoroscopic guidance for needle placement HISTORY: Chronic left shoulder pain. , Pre CT arthrogram RADIATION DOSE: Dose: 10.50 mGy Reference Air Kerma (Ka,r) TECHNIQUE: The risks, benefits and alternatives were discussed with the patient. Informed consent was obtained. Prior to beginning the procedure, [place] Protocol was performed to confirm the patient's identity and the planned procedure. The patient was placed on the fluoroscopy table. The left glenohumeral joint was localized with fluoroscopic guidance. The skin was prepped and draped in a standard sterile fashion. Using sterile technique, a 20 mL solution was prepared consisting of 7 mL sterile saline, 3 mL 0.25% bupivacaine, and 10 mL Omnipaque 180. Local anesthesia was achieved with subcutaneous injection of 1% lidocaine 2 mL. A 22 -gauge needle was then introduced into the joint under fluoroscopic guidance. The intra-articular position of the needle was confirmed with injection of 12 mL of the 20 mL iodinated contrast solution injected with intermittent fluoroscopic visualization. The patient was then transferred to the CT suite. There are were no immediate complications. FINDINGS: Fluoroscopic images confirm intra-articular position of the needle tip with subsequent filling of the joint space. The results of the CT arthrogram are reported separately. IMPRESSION: 1. Left glenohumeral joint injection under fluoroscopic guidance for CT arthrography. THIS IS AN ELECTRONICALLY VERIFIED FINAL REPORT 11/30/2024 4:47 PM - Electronically signed by Gerald ARELLANO T: Report ID: [id number] Reading Location: [id number] Procedure Note Gerald Poole MD - 11/30/2024 EXAM DESCRIPTION: 1. Left glenohumeral joint injection for arthrography 2. Fluoroscopic guidance for needle placement HISTORY: Chronic left shoulder pain. , Pre CT arthrogram RADIATION DOSE: Dose: 10.50 mGy Reference Air Kerma (Ka,r) TECHNIQUE: The risks, benefits and alternatives were discussed with the patient. Informed consent was obtained. Prior to beginning the procedure, [place] Protocol was performed to confirm the patient's identity and the planned procedure. The patient was placed on the fluoroscopy table. The left glenohumeraljoint was localized with fluoroscopic guidance. The skin was prepped and drapedin a standard sterile fashion. Using sterile technique, a 20 mL solution was prepared consisting of 7 mL sterile saline, 3 mL 0.25% bupivacaine, and10 mL Omnipaque 180. Local anesthesia was achieved with subcutaneous injection of 1% lidocaine2 mL. A 22 -gauge needle was then introduced into the joint underfluoroscopic guidance. The intra-articular position of the needle was confirmed with injection of 12 mL of the 20 mL iodinated contrast solution injected with intermittent fluoroscopic visualization. The patient was then transferred to the CT suite. There are were no immediate complications. FINDINGS: Fluoroscopic images confirm intra-articular position of theneedle tip with subsequent filling of the joint space. The results of the CT arthrogram are reported separately. IMPRESSION: 1. Left glenohumeral joint injection under fluoroscopic guidance forCT arthrography. THIS IS AN ELECTRONICALLY VERIFIED FINAL REPORT 11/30/2024 4:47 PM - Electronically signed by Gerald ARELLANO T: Report ID: [id number] Reading Location: [id number] David Smith MD IMG XR PROCEDURES Final Re sult * ID ARTHROCENTESIS ASPIR&/INJ MAJOR JT/BURSA W/O US (11/06/2024 2:30 PM CDT) Narrative David Smith MD - 11/06/2024 2:30 PM CDT David Smith MD 11/08/2024 7:23 AM Large Joint (Hip, Knee, Shoulder) Injection: L knee Performed by: Mariajose Perkins NP Authorized by: Mariajose Perkins NP Large Joint Injection/Aspiration: Consent Given by: Patient Site marked: the procedure site was marked Timeout: prior to procedure the correct patient, procedure, and site was verified Verbal consent obtained: Yes Supporting Documentation: Indications: Pain Procedure Details: Location: Knee Site: L knee Prep: patient was prepped using a clean technique Needle Size: 22 G Approach: Superior Ultrasound guided: No Fluroscopic guidance: No Medications: 2 mL lidocaine 10 mg/mL (1 %); 40 mg methylPREDNISolone acetate 40 mg/mL Patient tolerance: Patient tolerated the procedure well with no immediate complications Mariajose Perkins FILTER PRESS OPERATOR IN CLINIC/BEDSIDE ORDERABLE S Final Result * ID ARTHROCENTESIS ASPIR&/INJ MAJOR JT/BURSA W/O US (11/06/2024 2:30 PM CDT) Narrative David Smith MD - 11/06/2024 2:30 PM CDT David Smith MD 11/08/2024 7:23 AM Joint Aspiration, left knee Performed by: Mariajose Perkins NP Authorized by: Mariajose Perkins NP Indications: Joint swelling and pain Body area: Knee Joint: Left knee Prep: patient was prepped using a clean technique Needle size: 18 G Approach: Superior Aspirate amount (ml): 35 Aspirate: Clear and yellow patient tolerated the procedure well with no immediate complications Mariajose Perkins FILTER PRESS OPERATOR IN CLINIC/BEDSIDE ORDERABLE S Final Result * PSA screen (07/26/2024 10:04 AM CDT) PSA 2.02 < OR = 4.00 ng/mL [facility] Comment: The total PSA value from this assay system is standardized against the WHO standard. The test result will be approximately 20% lower when compared to the equimolar-standardized total PSA (Edyta Roula). Comparison of serial PSA results should be interpreted with this fact in mind. This test was performed using the Siemens chemiluminescent method. Values obtained from different assay methods cannot be used interchangeably. PSA levels, regardless of value, should not be interpreted as absolute evidence of the presence or absence of disease. Blood 07/26/2024 10:0 4 AM CDT 07/26/2024 10:04 AM CDT Narrative [facility] - 07/27/2024 3:55 AM CDT FASTING:YES FASTING: YES Reese Prince MD LAB BLOOD ORDERABLES Final Re sult [facility] [id number] [address] [place] [id number] * Colonoscopy (03/14/2024 10:29 AM LAST MODEL MAKER) Anatomical Region Laterality Modality Other Historical Provider ENDOSCOPY PROCEDURES Sariah l Result from Last 3 Months or Most Recently Relevant to Health Maintenance Insurance [employer] [facility] Advance Directives For more information, please contact: [phone] * Full Code (Latest Code Status on File) Date Activated Date Inactivated Comments 07/02/2021 12:49 PM 07/04/2021 9:16 PM Care Teams Burr Picker Relationship Specialty Start Date End Date Reese Prince MD [address] [facility] [address] [address] PCP - General Family Medicine 12/26/24
== END 2024-12-28 13:42 | disposition home or self-care (01) ==
PROVIDERS: PCP Family Medicine; Visit Provider Physician Assistant
DX: Z87.442 Personal history of urinary calculi (principal); N20.1 Calculus of ureter
CPT/HCPCS: 74176

== ENCOUNTER 2025-01-03 14:05 | Outpatient (CLI) | payer MEDICARE, BC, SELFPAY ==
--- OUTSIDE RECORDS SUMMARY | 2013-08-15 05:31 | XMS_ITS | Continuity of Care Document ---
Author Organization [facility] Address [address] [place] [address] [address] [place] [address] Phone Care Team Providers Care Tar Kettle Runner Name Role Phone Eren Cardoso Unavailable Unavailable Procedures Procedure Date THERAPEUTIC EXERCISES NEUROMUSCULAR RE-ED MANUAL THERAPY HOT/COLD PACK THERAPEUTIC EXERCISES NEUROMUSCULAR RE-ED MANUAL THERAPY HOT/COLD PACK THERAPEUTIC EXERCISES NEUROMUSCULAR RE-ED MANUAL THERAPY HOT/COLD PACK PT EVALUATION THERAPEUTIC EXERCISES MANUAL THERAPY Advance Directives Directive Yes / No Effective Date File Name No Information Encounters Encounter Description Practice Location Reason(s) For Visit Diagnoses Date Provider Providers Copied on Encounter [address], [id number], tel:[phone] [place] No Information [address] [facility], [address], [place], [facility], [place]. tel: [phone] [address], [place], [place], [id number], [phone] [place] No Information [address] [facility], [facility] 105, [place], [place], [facility], [place]. tel: [phone] Referring Provider: Phyllis Sanders Dr, [facility] [place], [address]. tel:[phone], [id number], tel:[phone] [place] No Information 4201 4 Muehl Eren. [address] [place] [address], [place] [address], [place]. tel: [phone] Referring Provider: Phyllis Sanders Dr [facility] [place], [address]. tel:[phone], [id number], tel:[phone] [place] No Information 8201 4 Muehl Eren. [address] [place] [address], [place] [address], . tel: [phone] Referring Provider: Phyllis Sanders Dr, [facility] [place], [address]. tel:[phone], [id number], tel:[phone] [place] Pain in joint involving pelvic region and thigh 4 Muehl Eren. [address] [place] [address], [address], [facility], . tel: [phone] Referring Provider: Phyllis Sanders [address] [facility] [place], [address]. tel:[phone] Family History Family Member Type Diagnosis Age At Onset No Information Payers Payer name Insurance type Covered republican ID Saeed doan(s) [facility] [id number] Social History Type Description Quantity Date Captured Comments Sex Male Smoking Status No Information Chief Complaint And Reason For Visit No Information Reason For Referral Reason For Referral No Information History Of Present Illness Encounter Date Complaint History Of Prese nt Illness No Information Functional Status Date Functional Assessmen t No Information Instructions Date Instruction Additional Infor mation No Information Assessments Type Assessment Date No Information Patient Care Teams Name Effective Dates (start - stop) Status Members No Information
--- OUTSIDE RECORDS SUMMARY | 2013-08-15 05:31 | XMS_ITS | Continuity of Care Document ---
Author Organization [facility] Address [address] [place] [address] [address] [place] [address] Phone Care Team Providers Care Water Plant Pump Operator Supervisor Name Role Phone Eren Cardoso Unavailable Unavailable [...] Diagnoses Date Provider Providers Copied on Encounter [address], [id number], tel:[phone] [place] No Information 4 Jennyfer Jason. [address] [facility], [address], [place], [facility], [place]. tel: [phone] [address], [place], [place], [id number], [phone] [place] No Information 4 Jennyfer Jason. [address] [facility], [facility] 105, [place], [place], [facility], [place]. tel: [phone] Referring Provider: Phyllis [address], [place], [address]. tel:[phone], [id number], tel:[phone] [place] No Information 4201 4 Muehl Eren. [address] [place] [address], [place] [address], [place]. tel: [phone] Referring Provider: Phyllis [place], [address]. tel:[phone], [id number], tel:[phone] [place] No Information 8201 4 Muehl Eren. [address] [place] [address], [place] [address], . tel: [phone] Referring Provider: Phyllis [address], [place], [address]. tel:[phone], [id number], tel:[phone] [place] Pain in joint involving pelvic region and thigh 4 Muehl Eren. [address] [place] [address], [address], [facility], . tel: [phone] Referring Provider: Phyllis [place], [address]. tel:[phone] Family History Family Member Type Diagnosis Age At Onset No Information Payers Payer name Insurance type Covered alliance party ID Saeed doan(s) [facility] [id number] Social History Type Description Quantity Date Captured [...]
--- OUTSIDE RECORDS SUMMARY | 2013-08-15 05:31 | XMS_ITS | Continuity of Care Document ---
Author Organization [facility] Address [address] [place] [address] [address] [place] [address] Phone Care Team Providers Care Stone Paver Name Role Phone Eren Cardoso Unavailable Unavailable [...] Diagnoses Date Provider Providers Copied on Encounter [address], [id number], tel:[phone] [place] No Information 4 Jennyfer Jason. [address] [facility], [address], [place], [facility], [place]. tel: [phone] [address], [place], [place], [id number], [phone] [place] No Information 4 Jennyfer Jason. [address] [facility], [facility] 105, [place], [place], [facility], [place]. tel: [phone] Referring Provider: Phyllis Sanders Dr, [place], [address]. tel:[phone], [id number], tel:[phone] [place] No Information 4201 4 Muehl Eren. [address] [place] [address], [place] [address], [place]. tel: [phone] Referring Provider: Phyllis Sanders [place], [address]. tel:[phone], [id number], tel:[phone] [place] No Information 8201 4 Muehl Eren. [address] [place] [address], [place] [address], . tel: [phone] Referring Provider: Phyllis [address], [place], [address]. tel:[phone], [id number], tel:[phone] [place] Pain in joint involving pelvic region and thigh 4 Muehl Eren. [address] [place] [address], [address], [facility], . tel: [phone] Referring Provider: Phyllis Sanders [place], [address]. tel:[phone] Family History Family Member Type Diagnosis Age At Onset No Information Payers Payer name Insurance type Covered democrat ID Saeed doan(s) [facility] [id number] Social History Type Description Quantity Date Captured [...]
--- OUTSIDE RECORDS SUMMARY | 2013-08-15 05:31 | XMS_ITS | Continuity of Care Document ---
Author Organization [facility] Address [address] [place] [address] [address] [place] [address] Phone Care Team Providers Care Platemaker Name Role Phone Eren Cardoso Unavailable Unavailable [...] Diagnoses Date Provider Providers Copied on Encounter [address], [id number], tel:[phone] [place] No Information 4 Jennyfer Jason. [address] [facility], [address], [place], [facility], [place]. tel: [phone] [address], [place], [place], [id number], [phone] [place] No Information 4 Jennyfer Jason. [address] [facility], [facility] 105, [place], [place], [facility], [place]. tel: [phone] Referring Provider: Phyll[address], [place], [address]. tel:[phone], [id number], tel:[phone] [place] No Information 4201 4 Muehl Eren. [address] [place] [address], [place] [address], [place]. tel: [phone] Referring Provider: Phyllis [place], [address]. tel:[phone], [id number], tel:[phone] [place] No Information 8201 4 Muehl Eren. [address] [place] [address], [place] [address], . tel: [phone] Referring Provider: Ph[address], [place], [address]. tel:[phone], [id number], tel:[phone] [place] Pain in joint involving pelvic region and thigh 4 Muehl Eren. [address] [place] [address], [address], [facility], . tel: [phone] Referring Provider: Phyllis [place], [address]. tel:[phone] Family History Family Member Type Diagnosis Age At Onset No Information Payers Payer name Insurance type Covered alliance party ID Saeed doan(s) [facility] [id number] Social History Type Description Quantity Date Captured [...]
--- OUTSIDE RECORDS SUMMARY | 2013-08-15 05:31 | XMS_ITS | Continuity of Care Document ---
Author Organization [facility] Address [address] [place] [address] [address] [place] [address] Phone Care Team Providers Care Jack Setter Name Role Phone Eren Cardoso Unavailable Unavailable [...] Diagnoses Date Provider Providers Copied on Encounter [address], [id number], tel:[phone] [place] No Information 4 Jennyfer Jason. [address] [facility], [address], [place], [facility], [place]. tel: [phone] [address], [place], [place], [id number], [phone] [place] No Information 4 Jennyfer Jason. [address] [facility], [facility] 105, [place], [place], [facility], [place]. tel: [phone] Referring Provider: Phyllis [address], [place], [address]. tel:[phone], [id number], tel:[phone] [place] No Information 4201 4 Muehl Eren. [address] [place] [address], [place] [address], [place]. tel: [phone] Referring Provider: Phyllis [address] [place], [address]. tel:[phone], [id number], tel:[phone] [place] No Information 8201 4 Muehl Eren. [address] [place] [address], [place] [address], . tel: [phone] Referring Provider: Phyllis [address], [place], [address]. tel:[phone], [id number], tel:[phone] [place] Pain in joint involving pelvic region and thigh 4 Muehl Eren. [address] [place] [address], [address], [facility], . tel: [phone] Referring Provider: Phyllis [address] [place], [address]. tel:[phone] Family History Family Member Type Diagnosis Age At Onset No Information Payers Payer name Insurance type Covered alliance party ID Saeed doan(s) [facility] [id number] Social History Type Description Quantity Date Captured [...]
--- OUTSIDE RECORDS SUMMARY | 2013-08-15 05:31 | XMS_ITS | Continuity of Care Document ---
Author Organization [facility] Address [address] [place] [address] [address] [place] [address] Phone Care Team Providers Care Tram Inspector Name Role Phone Eren Cardoso Unavailable Unavailable [...] Diagnoses Date Provider Providers Copied on Encounter [address], [id number], tel:[phone] [place] No Information 4 Jennyfer Jason. [address] [facility], [address], [place], [facility], [place]. tel: [phone] [address] 300, [place], [place], [id number], [phone] [place] No Information 4 Jennyfer Jason. [address] [facility], [facility] 105, [place], [place], [facility], [place]. tel: [phone] Referring Provider: Phyllis [address], [place], [address]. tel:[phone], [id number], tel:[phone] [place] No Information 4201 4 Muehl Eren. [address] [place] [address], [place] [address], [place]. tel: [phone] Referring Provider: Phyll[place], [address]. tel:[phone], [id number], tel:[phone] [place] No Information 8201 4 Muehl Eren. [address] [place] [address], [place] [address], . tel: [phone] Referring Provider: Phyllis [address], [place], [address]. tel:[phone], [id number], tel:[phone] [place] Pain in joint involving pelvic region and thigh 4 Muehl Eren. [address] [place] [address], [address], [facility], . tel: [phone] Referring Provider: Phyll[place], [address]. tel:[phone] Family History Family Member Type Diagnosis Age At Onset No Information Payers Payer name Insurance type Covered republican ID Saeed doan(s) [facility] [id number] Social History Type Description Quantity Date Captured [...]
--- OUTSIDE RECORDS SUMMARY | 2013-08-15 05:31 | XMS_ITS | Continuity of Care Document ---
Author Organization [facility] Address [address] [place] [address] [address] [place] [address] Phone Care Team Providers Care Shot Grinder Operator Name Role Phone Eren Cardoso Unavailable Unavailable [...] Diagnoses Date Provider Providers Copied on Encounter [address], [id number], tel:[phone] [place] No Information 4 Jennyfer Jason. [address] [facility], [address], [place], [facility], [place]. tel: [phone] [address] 300, [place], [place], [id number], [phone] [place] No Information 4 Jennyfer Jason. [address] [facility], [facility] 105, [place], [place], [facility], [place]. tel: [phone] Referring Provider: Phyllis Sanders Dr, [place], [address]. tel:[phone], [id number], tel:[phone] [place] No Information 4201 4 Muehl Eren. [address] [place] [address], [place] [address], [place]. tel: [phone] Referring Provider: Phyllis Sanders Dr [facility] [place], [address]. tel:[phone], [id number], tel:[phone] [place] No Information 8201 4 Muehl Eren. [address] [place] [address], [place] [address], . tel: [phone] Referring Provider: Phyllis Sanders Dr, [place], [address]. tel:[phone], [id number], tel:[phone] [place] Pain in joint involving pelvic region and thigh 4 Muehl Eren. [address] [place] [address], [address], [facility], . tel: [phone] Referring Provider: Phyllis Sanders Dr [facility] [place], [address]. tel:[phone] Family History Family Member Type Diagnosis Age At Onset No Information Payers Payer name Insurance type Covered libertarian ID Saeed doan(s) [facility] [id number] Social History Type Description Quantity Date Captured [...]
--- OUTSIDE RECORDS SUMMARY | 2013-08-15 05:31 | XMS_ITS | Continuity of Care Document ---
Author Organization [facility] Address [address] [place] [address] [address] [place] [address] Phone Care Team Providers Care Aircraft Log Clerk Name Role Phone Eren Cardoso Unavailable Unavailable [...] Diagnoses Date Provider Providers Copied on Encounter [address], [id number], tel:[phone] [place] No Information 4 Jennyfer Jason. [address] [facility], [address], [place], [facility], [place]. tel: [phone] [address], [place], [place], [id number], [phone] [place] No Information 4 Jennyfer Jason. [address] [facility], [facility] 105, [place], [place], [facility], [place]. tel: [phone] Referring Provider: Phyllis [address], [place], [address]. tel:[phone], [id number], tel:[phone] [place] No Information 4201 4 Muehl Eren. [address] [place] [address], [place] [address], [place]. tel: [phone] Referring Provider: Phyllis [place], [address]. tel:[phone], [id number], tel:[phone] [place] No Information 8201 4 Muehl Eren. [address] [place] [address], [place] [address], . tel: [phone] Referring Provider: Phyllis [address], [place], [address]. tel:[phone], [id number], tel:[phone] [place] Pain in joint involving pelvic region and thigh 4 Muehl Eren. [address] [place] [address], [address], [facility], . tel: [phone] Referring Provider: Phyllis [place], [address]. tel:[phone] Family History Family Member Type Diagnosis Age At Onset No Information Payers Payer name Insurance type Covered republican ID Saeed doan(s) [facility] [id number] Social History Type Description Quantity Date Captured [...]
--- OUTSIDE RECORDS SUMMARY | 2013-08-15 05:31 | XMS_ITS | Continuity of Care Document ---
Author Organization [facility] Address [address] [place] [address] [address] [place] [address] Phone Care Team Providers Care Washery Boss Name Role Phone Eren Cardoso Unavailable Unavailable [...] Date Provider Providers Copied on Encounter [address], [id number], tel:[phone] [place] No Information 4 Jennyfer Jason. [address] [facility], [address], [place], [facility], [place]. tel: [phone] [address], [place], [place], [id number], [phone] [place] No Information 4 Jennyfer aJson. [address] [facility], [facility] 105, [place], [place], [facility], [place]. tel: [phone] Referring Provider: Phyllis [address], [facility] [place], [address]. tel:[phone], [id number], tel:[phone] [place] No Information 4201 4 Muehl Eren. [address] [place] [address], [place] [address], [place]. tel: [phone] Referring Provider: Phyllis Sanders Dr [facility] [place], [address]. tel:[phone], [id number], tel:[phone] [place] No Information 8201 4 Muehl Eren. [address] [place] [address], [place] [address], . tel: [phone] Referring Provider: Phyllis [address] Dr, [facility] [place], [address]. tel:[phone], [id number], tel:[phone] [place] Pain in joint involving pelvic region and thigh 4 Muehl Eren. [address] [place] [address], [address], [facility], . tel: [phone] Referring Provider: Phyllis Sanders Dr [facility] [place], [address]. tel:[phone] Family History Family Member Type Diagnosis Age At Onset No Information Payers Payer name Insurance type Covered alliance party ID Saeed doan(s) [facility] [id number] Social History Type Description Quantity Date Captured [...]
--- OUTSIDE RECORDS SUMMARY | 2013-08-15 05:31 | XMS_ITS | Continuity of Care Document ---
Author Organization [facility] Address [address] [place] [address] [address] [place] [address] Phone Care Team Providers Care Chemical Supervisor Name Role Phone Eren Cardoso Unavailable [...] Diagnoses Date Provider Providers Copied on Encounter [address], [id number], tel:[phone] [place] No Information 4 Jennyfer Jason. [address] [facility], [address], [place], [facility], [place]. tel: [phone] [address] 300, [place], [place], [id number], [phone] [place] No Information 4 Jennyfer Jason. [address] [facility], [facility] 105, [place], [place], [facility], [place]. tel: [phone] Referring Provider: Phyllis [address], [place], [address]. tel:[phone], [id number], tel:[phone] [place] No Information 4201 4 Muehl Eren. [address] [place] [address], [place] [address], [place]. tel: [phone] Referring Provider: Phyllis [address] [place] [facility] [place], [address]. tel:[phone], [id number], tel:[phone] [place] No Information 8201 4 Muehl Eren. [address] [place] [address], [place] [address], . tel: [phone] Referring Provider: Ph[address], [place], [address]. tel:[phone], [id number], tel:[phone] [place] Pain in joint involving pelvic region and thigh 4 Muehl Eren. [address] [place] [address], [address], [facility], . tel: [phone] Referring Provider: Phyllis [address] [place] [facility] [place], [address]. tel:[phone] Family History Family Member Type Diagnosis Age At Onset No Information Payers Payer name Insurance type Covered libertarian ID Saeed doan(s) [facility] [id number] Social History Type Description Quantity Date Captured [...]
--- OUTSIDE RECORDS SUMMARY | 2013-08-15 05:31 | XMS_ITS | Continuity of Care Document ---
Author Organization [facility] Address [address] [place] [address] [address] [place] [address] Phone Care Team Providers Care Director Supply Chain Name Role Phone Eren Cardoso Unavailable Unavailable [...] Diagnoses Date Provider Providers Copied on Encounter [address], [id number], tel:[phone] Gruetli Laager No Information 4 Jennyfer Jason. [address] [facility], [address], [place], [facility], [place]. tel: [phone] [address], [place], [place], [id number], [phone] Gruetli Laager No Information 4 Jennyfer Jason. [address] [facility], [facility] 105, [place], [place], [facility], [place]. tel: [phone] Referring Provider: Phyllis [address], [place], [address]. tel:[phone], [id number], tel:[phone] Gruetli Laager No Information 4201 4 Muehl Eren. [address] [place] [address], [place] [address], [place]. tel: [phone] Referring Provider: Phyllis [address] [place] [place], [address]. tel:[phone], [id number], tel:[phone] Gruetli Laager No Information 8201 4 Muehl Eren. [address] [place] [address], [place] [address], . tel: [phone] Referring Provider: Phyllis [address], [place], [address]. tel:[phone], [id number], tel:[phone] Gruetli Laager Pain in joint involving pelvic region and thigh 4 Muehl Eren. [address] [place] [address], [address], [facility], . tel: [phone] Referring Provider: Phyllis [address] [place], [address]. tel:[phone] Family History Family Member Type Diagnosis Age At Onset No Information Payers Payer name Insurance type Covered libertarian ID Saeed doan(s) [facility] [id number] Social History Type Description Quantity Date Captured [...]
--- OUTSIDE RECORDS SUMMARY | 2013-08-15 05:31 | XMS_ITS | Continuity of Care Document ---
Author Organization [facility] Address [address] [place] [address] [address] [place] [address] Phone Care Team Providers Care Automobile Repair Service Estimator Name Role Phone Eren Cardoso Unavailable Unavailable [...] Diagnoses Date Provider Providers Copied on Encounter [address], [id number], [phone] [place] No Information 4 Jennyfer Jason. [address] [facility], [address], [place], [facility], [place]. tel: [phone] [address], [place], [place], [id number], [phone] [place] No Information 4 Jennyfer Jason. [address] [facility], [facility] 105, [place], [place], [facility], [place]. tel: [phone] Referring Provider: Phyllis Sanders Dr, [place], [address]. tel:[phone], [id number], tel:[phone] [place] No Information 4201 4 Muehl Eren. [address] [place] [address], [place] [address], [place]. tel: [phone] Referring Provider: Phyllis Sanders [place] [facility], [address]. tel:[phone], [id number], tel:[phone] [place] No Information 8201 4 Muehl Eren. [address] [place] [address], [place] [address], . tel: [phone] Referring Provider: Phyllis Sanders Dr, [place], [address]. tel:[phone], [id number], tel:[phone] [place] Pain in joint involving pelvic region and thigh 4 Muehl Eren. [address] [place] [address], [address], [facility], . tel: [phone] Referring Provider: Phyllis Sanders [place] [facility], [address]. tel:[phone] Family History Family Member Type Diagnosis Age At Onset No Information Payers Payer name Insurance type Covered green party ID Saeed doan(s) [facility] [id number] Social History Type Description Quantity Date Captured [...]
--- NOTE | 2025-01-03 14:18 | ECG_ITS ---
Test Date: 2025-01-03 14:33:26 Measurements Intervals Wiseman Rate: 81 P: 18 MO: 201 QRS: -27 QRSD: 90 T: -5 QT: 337 QTc: 393 Interpretive Statements SINUS RHYTHM INDETERMINATE AXIS LOW QRS VOLTAGE IN PRECORDIAL LEADS [QRS DEFLECTION < 1.0 mV IN CHEST LEADS] POSSIBLE ANTERIOR MYOCARDIAL INFARCTION [30 ms Q WAVE IN V3/V4, OR R < 0.2 mV IN V4], PROBABLY OLD PROBABLE INFERIOR MYOCARDIAL INFARCTION [35 ms Q WAVE IN II/aVF], OF INDETERMINATE AGE ABNORMAL ECG No previous ECG available for comparison Electronically Signed On 01-03-2025 17:19:45 BRAZING FURNACE FEEDER by Ortega Ojeda M.D.
--- OUTSIDE RECORDS SUMMARY | 2025-01-03 21:32 | XMS_ITS | Encounter Summary ---
Author Organization [facility] Facility Care Team Providers Care Hand Quilter Name Role Phone Unknown, Notinfile Primary Care Provider Unavail able Reese Prince MD Primary Care Provider [phone] Juana Willson Primary Care Provider + Reese Prince MD Primary Care Provider [phone] Encounter Details Date Type Department Care Team (Latest Contact Info) Description 01/12/2017 Orders Only [facility] CLINCONV ProviderAlban MD [address] [place] [address] Social History Tobacco Use Types Packs/Day Years Used Date Smoking Tobacco: Never Assessed Sex and Gender Information Value Date Recorded Sex Assigned at Not on file Legal Sex Male 7:18 PM REPRODUCTIVE SURGEON Gender Identity Not on file Sexual Orientation Not on file documented as of this encounter Plan of Treatment Upcoming Encounters Date Type Department Care Team (Latest Contact Info) Description 03/19/2025 7:30 AM REPRODUCTIVE SURGEON Hospital Encounter [facility] [place] [address] [place] [address] David Smith MD [address] [place] [address] [address] [place] [address] 03/19/2025 7:30 AM REPRODUCTIVE SURGEON - 03/19/2025 10:05 AM REPRODUCTIVE SURGEON Surgery [facility] OR [address] [place] [address] David Smith MD [address] [place] [address] [address] [place] [address] REVERSE LEFT TOTAL SHOULDER ARTHROPLASTY Scheduled Procedures Name Priority Associated Diagnoses Date/Ti me ARTHROPLASTY SHOULDER - REVERSE TOTAL Traumatic rotator cuff tear, left, subsequent encounter 03/19/2025 7:30 AM REPRODUCTIVE SURGEON documented as of this encounter Procedures Procedure Name Priority Date/Time Associated Diagnosis Comments PROCEDURE - RESULT 01/12/2017 12 :00 AM REPRODUCTIVE SURGEON PROCEDURE - RESULT 01/12/2017 12 :00 AM REPRODUCTIVE SURGEON documented in this encounter Results * PROCEDURE - RESULT (01/12/2017 12:00 AM REPRODUCTIVE SURGEON) Narrative 01/12/2017 12:00 AM REPRODUCTIVE SURGEON Ordered by an unspecified provider. Historical Provider Final Res ult * PROCEDURE - RESULT (01/12/2017 12:00 AM REPRODUCTIVE SURGEON) Narrative 01/12/2017 12:00 AM REPRODUCTIVE SURGEON Ordered by an unspecified provider. Historical Provider Final Res ult documented in this encounter Visit Diagnoses Not on filedocumented in this encounter Care Teams Hand Quilter Relationship Specialty Start Date End Date Unknown, Notinfile PCP - General 01/22/17 02/23/17 Reese Prince MD PCP - General 02/24/17 03/23/18 Juana Willson PA PCP - General 03/24/18 06/11/19 Reese Prince MD [address] [facility] [place] [address] PCP - General Family Medicine 12/26/24 documented as of this encounter
--- OUTSIDE RECORDS SUMMARY | 2025-01-03 21:32 | XMS_ITS | Encounter Summary ---
Author Organization [facility] Address [address] [place] [address] Phone Care Team Providers Care Ground Support Equipment Fitter Name Role Phone Reese Prince MD Primary Care Provider [phone] Juana Willson Primary Care Provider + Reese Prince MD Primary Care Provider [phone] Encounter Details Date Type Department Care Team (Latest Contact Info) Description 03/13/2017 Orders Only [facility] CONVERSION Scanning, Provider Social History Tobacco Use Types Packs/Day Years Used Date Smoking Tobacco: Never Assessed Sex and Gender Information Value Date Recorded Sex Assigned at Not on file Legal Sex Male 7:18 PM LEAD MASSAGE THERAPIST Gender Identity Not on file Sexual Orientation Not on file documented as of this encounter Plan of Treatment Upcoming Encounters Date Type Department Care Team (Latest Contact Info) Description 03/19/2025 7:30 AM LEAD MASSAGE THERAPIST Hospital Encounter [facility] OR [address] [place] [address] David Smith MD [address] [place] [address] [address] [place] [address] 03/19/2025 7:30 AM LEAD MASSAGE THERAPIST - 03/19/2025 10:05 AM LEAD MASSAGE THERAPIST Surgery [facility] OR [address] [place] [address] David Smith MD [address] [place] [address] [address] [place] [address] REVERSE LEFT TOTAL SHOULDER ARTHROPLASTY Scheduled Procedures Name Priority Associated Diagnoses Date/Ti me ARTHROPLASTY SHOULDER - REVERSE TOTAL Traumatic rotator cuff tear, left, subsequent encounter 03/19/2025 7:30 AM LEAD MASSAGE THERAPIST documented as of this encounter Procedures Procedure Name Priority Date/Time Associated Diagnosis Comments VASCULAR LABORATORY REPORT 03/13/2017 4:50 PM LEAD MASSAGE THERAPIST documented in this encounter Results * VASCULAR LABORATORY REPORT (03/13/2017 4:50 PM LEAD MASSAGE THERAPIST) Anatomical Region Laterality Modality Ultrasound us Provider Scanning CV VASCULAR PROCEDURES Final R esult documented in this encounter Visit Diagnoses Not on filedocumented in this encounter Care Teams Ground Support Equipment Fitter Relationship Specialty Start Date End Date Reese Prince MD PCP - General 02/24/17 03/23/18 Juana Willson PA PCP - General 03/24/18 06/11/19 Reese Prince MD [address] [facility] [address] [place] [address] PCP - General Family Medicine 12/26/24 documented as of this encounter
--- OUTSIDE RECORDS SUMMARY | 2025-01-03 21:32 | XMS_ITS | Encounter Summary ---
Author Organization [facility] Address [address] [place] [address] Phone Care Team Providers Care Amalgamator Name Role Phone Reese Prince MD Primary Care Provider [phone] Juana Willosn Primary Care Provider + Reese Prince MD Primary Care Provider [phone] Encounter Details Date Type Department Care Team (Latest Contact Info) Description 05/20/2017 Orders Only [facility] CONVERSION Scanning, Provider Social History Tobacco Use Types Packs/Day Years Used Date Smoking Tobacco: Never Sex and Gender Information Value Date Recorded Sex Assigned at Not on file Legal Sex Male 7:18 PM CRITICAL POWER INSTALL TECHNICIAN Gender Identity Not on file Sexual Orientation Not on file documented as of this encounter Plan of Treatment Upcoming Encounters Date Type Department Care Team (Latest Contact Info) Description 03/19/2025 7:30 AM CRITICAL POWER INSTALL TECHNICIAN Hospital Encounter [facility] OR [address] [place] [address] David Smith MD [address] [place] [address] [address] [place] [address] 03/19/2025 7:30 AM CRITICAL POWER INSTALL TECHNICIAN - 03/19/2025 10:05 AM CRITICAL POWER INSTALL TECHNICIAN Surgery [facility] OR [address] [place] [address] David Smith MD [address] [place] [address] [address] [place] [address] REVERSE LEFT TOTAL SHOULDER ARTHROPLASTY Scheduled Procedures Name Priority Associated Diagnoses Date/Ti me ARTHROPLASTY SHOULDER - REVERSE TOTAL Traumatic rotator cuff tear, left, subsequent encounter 03/19/2025 7:30 AM CRITICAL POWER INSTALL TECHNICIAN documented as of this encounter Procedures Procedure [...] on filedocumented in this encounter Care Teams Amalgamator Relationship Specialty Start Date End Date Reese Prince MD PCP - General 02/24/17 03/23/18 Juana Willson PA PCP - General 03/24/18 06/11/19 Reese Prince MD [address] [facility] [address] [place] [address] PCP - General Family Medicine 12/26/24 documented as of this encounter
--- OUTSIDE RECORDS SUMMARY | 2025-01-03 21:32 | XMS_ITS | Clinical Summary ---
Author Organization [place] [id number] Address [address] [place] [address] Care Team Providers Care Substance Abuse Rn Name Role Phone Reees Prince MD Primary Care Provider [phone] Allergies Active Allergy Reactions Criticality Noted Date [...] 04/14/2021 Assessment & Plan (04/14/2021 2:16 PM CYLINDRICAL MIXER): Had history of appendicial mass in 2004 [...] (10/17/2019): Added automatically from request for surgery [id number] Primary osteoarthritis of left knee 08/22/2018 Vitamin D deficiency 12/16/2016 Degenerative disc disease, lumbar 07/22/2016 Generalized anxiety disorder 06/10/2016 Assessment & Plan (04/14/2021 2:16 PM CYLINDRICAL MIXER): Increased stress with pandemic and caring for [...] pain Assessment & Plan (04/14/2021 2:18 PM CYLINDRICAL MIXER): Well controlled. Continue current regimen. GERD (gastroesophageal reflux disease) 6 Benign prostate hyperplasia Assessment & Plan (04/14/2021 1:43 PM CYLINDRICAL MIXER): Follows with urology, Dr. Mcconnell, and on [...] on calories. Most people should eat between 5948-8034 calories to lose weight. Decrease your carbohydrate [...] Department Care Team Description 12/26/2024 2:15 PM CYLINDRICAL MIXER Office Visit [facility] Family Medicine at [address] [place] [address] Reese Prince MD Annual physical exam (Primary Dx); Mixed hyperlipidemia; Screening, heart disease, ischemic 12/15/2024 Orders Only [facility] [address] [place] [address] [address] [place] [address] David Smith MD Traumatic complete tear of left rotator cuff, subsequent encounter (Primary Dx); Primary osteoarthritis, left shoulder 12/12/2024 1:00 PM CDT Office Visit [facility] [address] [place] [address] [address] [place] [address] David Smith MD Traumatic complete tear of left rotator cuff, subsequent encounter (Primary Dx) 11/30/2024 12:27 PM CDT - 11/30/2024 11:59 PM CDT Hospital Encounter [facility] Diagnostic Imaging [address] [place] [address] Chronic left shoulder pain Discharge Disposition: Discharge to home or self care 11/30/2024 12:27 PM CDT - 11/30/2024 11:59 PM CDT Hospital Encounter [facility] ED [facility] [address] [place] [address] David Smith MD Chronic left shoulder pain Discharge Disposition: Discharge to home or self care 11/27/2024 Telephone [facility] [address] [place] [address] Ney Roberts PA 11/06/2024 2:30 PM CDT Office Visit [facility] [address] [place] [address] Mariajose Perkins NP Primary tricompartmental osteoarthritis of left knee; Effusion of left knee 10/04/2024 Telephone [facility] [address] [place] [address] David Smith MD from Last [...] on file Legal Sex Male 7:18 PM CYLINDRICAL MIXER Gender Identity Not on file Sexual Orientation Not on file Last Filed Vital Signs Vital Sign Reading Time Taken Comments Blood Pressure 138/78 12/26/2024 2:27 PM CYLINDRICAL MIXER Pulse 73 12/26/2024 2:27 PM CYLINDRICAL MIXER Temperature 36.7 C (98 F) 12/26/2024 2:27 PM CYLINDRICAL MIXER Respiratory Rate 16 12/26/2024 2:27 PM CYLINDRICAL MIXER Oxygen Saturation 99% 12/26/2024 2:27 PM CYLINDRICAL MIXER Inhaled Oxygen Concentration - - Weight 91.8 kg (202 lb 6.4 oz) 12/26/2024 2:27 P M CYLINDRICAL MIXER Height 180.3 cm (5' 11) 12/26/2024 2:27 PM CYLINDRICAL MIXER Body Mass Index 28.23 12/26/2024 2:27 PM CYLINDRICAL MIXER Plan of Treatment Upcoming Encounters Date Type Department Care Team (Latest Contact Info) Description 03/19/2025 7:30 AM CYLINDRICAL MIXER Hospital Encounter [facility] OR [address] [place] [address] David Smith MD [address] [place] [address] 03/19/2025 7:30 AM CYLINDRICAL MIXER - 03/19/2025 10:05 AM CYLINDRICAL MIXER Surgery [facility] OR [address] [place] [address] David Smith MD [address] [facility] [place] [address] REVERSE LEFT TOTAL SHOULDER ARTHROPLASTY Scheduled Procedures Name Priority Associated Diagnoses Date/Ti me ARTHROPLASTY SHOULDER - REVERSE TOTAL Traumatic rotator cuff tear, left, subsequent encounter 03/19/2025 7:30 AM CYLINDRICAL MIXER Health Maintenance Due Date Last Done Comments [...] Procedure Name Priority Date/Time Associated Diagnosis Comments CA ARTHROCENTESIS ASPIR&/INJ MAJOR JT/BURSA W/O US Routine 12/12/2024 1:00 PM CDT Traumatic complete tear of left rotator cuff, subsequent encounter CT ARTHROGRAM SHOULDER LEFT W CONTRAST Schedule Routine, Read Routine (OP Routine) 11/30/2024 2:11 PM CDT Chronic left shoulder pain INJECTION SHOULDER LEFT ARTHRO ONLY Schedule Routine, Read Routine (OP Routine) 11/30/2024 1:40 PM CDT Chronic left shoulder pain CA ARTHROCENTESIS ASPIR&/INJ MAJOR JT/BURSA W/O US Routine 11/06/2024 2:30 PM CDT Primary tricompartmental osteoarthritis of left knee CA ARTHROCENTESIS ASPIR&/INJ MAJOR JT/BURSA W/O US Routine 11/06/2024 2:30 PM CDT Effusion of left knee PSA SCREEN Routine 07/26/2024 10:04 AM CDT Essential (primary) hypertension COLONOSCOPY Routine 03/14/2024 10:29 AM CYLINDRICAL MIXER from Last 3 Months or Most Recently Relevant to Health Maintenance Results * CA ARTHROCENTESIS ASPIR&/INJ MAJOR JT/BURSA W/O US (12/12/2024 [...] by Musa Youssef M.D. T: Report ID: [id number] Reading Location: [id number] Procedure Note Musa Youssef MD - 11/30/2024 [...] by Musa Youssef M.D. T: Report ID: [id number] Reading Location: [id number] David Smith MD [facility] CT PROCEDURES Final Re sult * Injection [...] was obtained. Prior to beginning the procedure, [place] Protocol was performed to confirm the patient's [...] signed by Gerald ARELLANO T: Report ID: [id number] Reading Location: [id number] Procedure Note Gerald Poole MD - 11/30/2024 EXAM DESCRIPTION: 1. Left glenohumeral joint injection for arthrography 2. Fluoroscopic guidance for needle placement HISTORY: Chronic left shoulder pain. , Pre CT arthrogram RADIATION DOSE: Dose: 10.50 mGy Reference Air Kerma (Ka,r) TECHNIQUE: The risks, benefits and alternatives were discussed with the patient. Informed consent was obtained. Prior to beginning the procedure, [place] Protocol was performed to confirm the patient's [...] signed by Gerald ARELLANO T: Report ID: [id number] Reading Location: [id number] us David Smith MD IMG XR PROCEDURES Final Re sult * CA ARTHROCENTESIS ASPIR&/INJ MAJOR JT/BURSA W/O US (11/06/2024 [...] well with no immediate complications Mariajose Perkins FAMILY COACH IN CLINIC/BEDSIDE ORDERABLE S Final Result * CA ARTHROCENTESIS ASPIR&/INJ MAJOR JT/BURSA W/O US (11/06/2024 [...] well with no immediate complications Mariajose Perkins FAMILY COACH IN CLINIC/BEDSIDE ORDERABLE S Final Result * [...] LAB BLOOD ORDERABLES Final Re sult [email or web address] [id number] [address] [id number] * Colonoscopy (03/14/2024 10:29 AM CYLINDRICAL MIXER) Anatomical Region Laterality Modality Other Historical Provider ENDOSCOPY PROCEDURES Sariah l Result from Last 3 Months or Most Recently Relevant to Health Maintenance Insurance [employer] [facility] Advance Directives For more information, please contact: [phone] * Full Code (Latest Code Status on File) Date Activated Date Inactivated Comments 07/02/2021 12:49 PM 07/04/2021 9:16 PM Care Teams Substance Abuse Rn Relationship Specialty Start Date End Date Reese Prince MD [address] [facility] [address] [address] PCP - General Family Medicine 12/26/24
--- OUTSIDE RECORDS SUMMARY | 2025-01-03 21:32 | XMS_ITS | Encounter Summary ---
Author Organization [facility] Facility Care Team Providers Care Nature Photographer Name Role Phone Unknown, Notinfile Primary Care Provider Unavail able Reese Prince MD Primary Care Provider [phone] Juana Willson Primary Care Provider + Reese Prince MD Primary Care Provider [phone] Encounter Details Date Type Department Care Team (Latest Contact Info) Description 07/10/2015 Orders Only [facility] CLINCONV ProviderAlban MD [address] [place] [address] Social History Tobacco Use Types Packs/Day Years Used Date Smoking Tobacco: Never Assessed Sex and Gender Information Value Date Recorded Sex Assigned at Not on file Legal Sex Male 7:18 PM TRY OUT PERSON Gender Identity Not on file Sexual Orientation Not on file documented as of this encounter Plan of Treatment Upcoming Encounters Date Type Department Care Team (Latest Contact Info) Description 03/19/2025 7:30 AM TRY OUT PERSON Hospital Encounter [facility] [place] [address] [place] [address] David Smith MD [address] [place] [address] DR RODRIGUEZ [address] [place] [address] 03/19/2025 7:30 AM TRY OUT PERSON - 03/19/2025 10:05 AM TRY OUT PERSON Surgery [facility] OR [address] [place] [address] David Smith MD [address] [place] [address] DR RODRIGUEZ [address] [place] [address] REVERSE LEFT TOTAL SHOULDER ARTHROPLASTY Scheduled Procedures Name Priority Associated Diagnoses Date/Ti me ARTHROPLASTY SHOULDER - REVERSE TOTAL Traumatic rotator cuff tear, left, subsequent encounter 03/19/2025 7:30 AM TRY OUT PERSON documented as of this encounter Procedures Procedure [...] on filedocumented in this encounter Care Teams Nature Photographer Relationship Specialty Start Date End Date Unknown, Notinfile PCP - General 01/22/17 02/23/17 Reese Prince MD PCP - General 02/24/17 03/23/18 Juana Willson PA PCP - General 03/24/18 06/11/19 Reese Prince MD [address] [facility] [address] RODRIGUEZ [address] [place] [address] PCP - General Family Medicine 12/26/24 documented as of this encounter
--- OUTSIDE RECORDS SUMMARY | 2025-01-03 21:33 | XMS_ITS | Clinical Summary ---
Author Organization [facility] Address [address] [facility] [place] [address] Care Team Providers Care Electric Stop Installer Name Role Phone Unavailable Primary Care Provider Unavailabl e Source Comments [facility],non-owned Affiliates and Associated Physician Practices is amultiple site organization consisting of ambulatory clinics and hospital sitesin [place], [place], [place] and [place]. This disclosure is being madepursuant to the Care Everywhere program and may not contain all information available regarding this patient. Last updated 17.[facility] Social History Tobacco Use Types Packs/Day Years [...] DEPRESSION SCREENING 02/16/2024 COVID-19 VACCINE (1 - 2024-2 6 season) 2024 INFLUENZA VACCINE (#1) 2024 Respiratory [...] patient's age to complete this topic Insurance [facility]
--- OUTSIDE RECORDS SUMMARY | 2025-01-03 21:33 | XMS_ITS | Encounter Summary ---
Author Organization [facility] Address [address] [place] [place] [address] Care Team Providers Care Commercial Carpenter Name Role Phone Unavailable Primary Care Provider Unavailabl e Encounter Details Date Type Department Care Team (Late st Contact Info) Description 10/30/2022 Lab Requisition [facility] Derm[facility] Lab [address] [facility], [place] [phone] Chris Snyder MD [address] [place] [address] Social History Tobacco Use Types Packs/Day Years [...] AM CDT) Case Report Dermatopathology Report Case: [id number] Authorizing Provider: Chris Snyder MD Collected: 10/30/2022 03:33 AM Ordering Location: [facility] Received: 11/02/2022 06:06 AM Pathologist: Jody Thomas MD Specimen: Skin, right volar FA 3 4:32 PM CDT DERMATOPATHOLOGY LABORATORY Final Diagnosis Specimen A. SKIN, right volar FA: SUBACUTE SPONGIOTIC DERMATITIS (L30.8) (see microscopic description and comment) 3 4:32 PM CDT DERMATOPATHOLOGY LABORATORY at 1632 CDT Clinical History PMLE vs Eczema vs Allergic contact (ACD) Path#[id number] 3 4:32 PM CDT DERMATOPATHOLOGY LABORATORY Gross [...] characteristic determined by the Dermatopathology Laboratory at [facility], directed by Dr. Irasema Caban. These tests need not be, and therefore are not, approved by the [place] Food and Drug Administration. The tests are used for clinical purposes. Billing Codes Specimen Charges Stain Charges 91910 1 55108 1 3 4:32 PM CDT DERMATOPATHOLOGY LABORATORY Embedded Images 3 4:32 PM CDT DERMATOPATHOLOGY LABORATORY Pathology/Cytolo gy TISSUE SPECIMEN FROM SKIN / Unknown 10/30/2022 3:33 AM CDT 11/02/2022 6:06 AM CDT us Chris Snyder MD LAB - PATHOLOGY/CYTOLOGY ORDER SERINA Final Result DERMATOPATHOLOGY LABORATORY [facility] - Department of Dermatology [address] [place] [address], [facility] [phone] documented in this encounter Visit Diagnoses Not on filedocumented in this encounter
--- OUTSIDE RECORDS SUMMARY | 2025-01-03 21:33 | XMS_ITS | Clinical Summary ---
Author Organization [facility] Address [address] [place] [address] Care Team Providers Care Shipsmith Name Role Phone Unavailable Primary Care Provider [...] patient's age to complete this topic Insurance [facility]
== END 2025-01-03 14:06 | disposition home or self-care (01) ==
LOC: ANHSURGERY 14:09
PROVIDERS: PCP Family Medicine; Visit Provider Urology
DX: I10 Essential (primary) hypertension (principal); Z01.818 Encounter for other preprocedural examination; R94.31 Abnormal electrocardiogram [ECG] [EKG]
CPT/HCPCS: 93005

== ENCOUNTER 2025-01-05 03:42 | Day surgery (SDC) | payer MEDICARE, BC, SELFPAY ==
--- OUTSIDE RECORDS SUMMARY | 2013-08-15 05:31 | XMS_ITS | Continuity of Care Document ---
Author Organization [facility] Address [address] [place] [address] [address] [place] [address] Phone Care Team Providers Care Inspector Filter Tip Name Role Phone Eren Cardoso Unavailable Unavailable [...] Diagnoses Date Provider Providers Copied on Encounter [address], [id number], tel:[phone] [place] No Information 4 Jennyfer Jason. [address] [facility], [address], [place], [facility], [place]. tel: [phone] [address], [place], [place], [id number], [phone] [place] No Information 4 Jennyfer Jason. [address] [facility], [facility] 105, [place], [place], [facility], [place]. tel: [phone] Referring Provider: Phyllis [address], [place], [address]. tel:[phone], [id number], tel:[phone] [place] No Information 4201 4 Muehl Eren. [address] [place] [address], [place] [address], [place]. tel: [phone] Referring Provider: Phyllis [place], [address]. tel:[phone], [id number], tel:[phone] [place] No Information 8201 4 Muehl Eren. [address] [place] [address], [place] [address], . tel: [phone] Referring Provider: Ph[address], [place], [address]. tel:[phone], [id number], tel:[phone] [place] Pain in joint involving pelvic region and thigh 4 Muehl Eren. [address] [place] [address], [address], [facility], . tel: [phone] Referring Provider: Phyllis [place], [address]. tel:[phone] Family History Family Member Type Diagnosis Age At Onset No Information Payers Payer name Insurance type Covered republican ID Saeed doan(s) [facility] [id number] Social History Type Description Quantity Date Captured [...]
[2025-01-03 09:39] VITALS: BMI 28.3
--- NOTE | 2025-01-03 09:54 | PC.NURSE ---
[facility] has started construction of its new state of the art ER which will open Spring 2026. With this, we anticipate parking may be a challenge for some our surgical patients and families. Parking spaces are limited but are available for all Surgical, obstetrics, and ER patients sharing this lot. If you arrive and find you are having a hard time finding a parking space, please note that we understand the challenges, please drive around the hospital and park near Hospital Entrance 1. When you enter this entrance, you can ask a volunteer to direct or take you back to the surgical waiting area to check in. We appreciate everyone?s understanding of these expected challenges while we build for your future. Report to the Outpatient Waiting Room, entrance under the green pavilion located off [address], at time __0830am on date __01/05/25 . Planned Procedure Time: ___10:30am .? Time changes happen often and if your time is changed the preop area will call you the afternoon before. - You and your visitor will be asked to self-screen and do not enter if you have any COVID symptoms. Please call surgeon if you need to reschedule. - A mask is optional within the hospital at this time. Patients may have clear liquids (water, carbonated beverages, clear teas, apple juice) until 3 hours prior to surgery with a maximum of 20 ounces. - No food from midnight until time of surgery and no smoking, or chewing tobacco (or any form of nicotine). No chewing gum, candy or mints. (07:30am) Take only the following medications with a SIP of water on the morning of surgery: Tylenol if needed DO NOT STOP ANY OF YOUR OTHER PRESCRIPTION MEDICATIONS PRIOR TO SURGERY EXCEPT THE FOLLOWING Hold all vitamins and supplements for [address] Mcconnell. Medications to discontinue per physician NO Motrin, Advil, or NSAIDS/Aspirin till post op per Dr Mcconnell Date to take last dose____NONE Please no make-up, nail amharic, hairspray, perfume, deodorant, or body powder the day of surgery.? No jewelry (including any body piercings) or valuables the day of surgery, leave them at home.? Please take a shower or bath the night before, or the morning of, surgery with an antibacterial soap.? Wear comfortable, loose fitting clothing.? - Jewelry must be removed prior to entering the operating room.? Rings and piercings that are not removed may be cut off. - The hospital will not accept responsibility for valuables.? - Please leave all valuables, including medications, at home the day of surgery. If you are going home after surgery, a licensed cdl bulk driver must drive you home.? - NO public transportation without another adult if you receive anesthesia. - We recommend that an adult stay with you for 24 hours following discharge. - We also recommend that you do not drive, make important decision, drink alcoholic beverages, or take any drugs that were not prescribed by your health care provider for at least 24 hours after your discharge time. Follow any additional instructions given to you from your surgeon. Telephone instructions given to ___Patient and asked if any additional questions and then verbalized understanding. Patient advised to call surgeon office or pre surgery nurse liaison [phone] if any additional questions.
--- NOTE | ~2025-01-05 | XR_ITS ---
EXAM/PROCEDURE: XR retrograde pyelogram LT HISTORY: LEFT RETRO/STENT COMPARISON: None Fluoroscopy time: 2.3 seconds Cumulative dose: 7.47 mGy IMPRESSION: Retrograde left-sided pyelography performed. No radiologist present for procedure. See operative/procedure report for complete details. Reviewed, dictated and finalized at location A. [employer]DER
--- OUTSIDE RECORDS SUMMARY | 2025-01-05 03:44 | XMS_ITS | Clinical Summary ---
Author Organization [facility] Address [address] [facility] [place] [address] Care Team Providers Care Hydrogenation Operator Name Role Phone Unavailable Primary Care Provider Unavailabl e Source Comments [facility],non-owned Affiliates and Associated Physician Practices is amultiple site organization consisting of ambulatory clinics and hospital sitesin [place], [place] and [place]. This disclosure is being madepursuant to the Care Everywhere program and may not contain all information available regarding this patient. Last updated 17.[facility] Social History Tobacco Use Types Packs/Day Years [...] patient's age to complete this topic Insurance [facility]
--- OUTSIDE RECORDS SUMMARY | 2025-01-05 03:44 | XMS_ITS | Encounter Summary ---
Author Organization [facility] Address [address] [place] [address] Phone Care Team Providers Care Cat Scan Tech Name Role Phone Reese Prince MD Primary Care Provider [phone] Juana Willson Primary Care Provider + Reese Prince MD Primary Care Provider [phone] Encounter Details Date Type Department Care Team (Latest Contact Info) Description 05/20/2017 Orders Only [facility] CONVERSION Scanning, Provider Social History Tobacco Use Types Packs/Day Years Used Date Smoking Tobacco: Never Sex and Gender Information Value Date Recorded Sex Assigned at Not on file Legal Sex Male 7:18 PM DELICATESSEN DEPARTMENT MANAGER Gender Identity Not on file Sexual Orientation Not on file documented as of this encounter Plan of Treatment Upcoming Encounters Date Type Department Care Team (Latest Contact Info) Description 03/19/2025 7:30 AM DELICATESSEN DEPARTMENT MANAGER Hospital Encounter [facility] OR [address] [place] [address] David Smith MD [address] [place] [address] DR RODRIGUEZ [address] [place] [address] 03/19/2025 7:30 AM DELICATESSEN DEPARTMENT MANAGER - 03/19/2025 10:05 AM DELICATESSEN DEPARTMENT MANAGER Surgery [facility] OR [address] [place] [address] David Smith MD [address] [place] [address] DR RODRIGUEZ [address] [place] [address]67 REVERSE LEFT TOTAL SHOULDER ARTHROPLASTY Scheduled Procedures Name Priority Associated Diagnoses Date/Ti me ARTHROPLASTY SHOULDER - REVERSE TOTAL Traumatic rotator cuff tear, left, subsequent encounter 03/19/2025 7:30 AM DELICATESSEN DEPARTMENT MANAGER documented as of this encounter Procedures Procedure [...] on filedocumented in this encounter Care Teams Cat Scan Tech Relationship Specialty Start Date End Date Reese Prince MD PCP - General 02/24/17 03/23/18 Juana Willson PA PCP - General 03/24/18 06/11/19 Reese Prince MD [address] [facility] [address] RODRIGUEZ [address] [place] [address] PCP - General Family Medicine 12/26/24 documented as of this encounter
--- OUTSIDE RECORDS SUMMARY | 2025-01-05 03:44 | XMS_ITS | Clinical Summary ---
Author Organization [facility] Address [address] [place] [address] Care Team Providers Care Meter Record Clerk Name Role Phone Unavailable Primary Care Provider [...] patient's age to complete this topic Insurance [facility]
--- OUTSIDE RECORDS SUMMARY | 2025-01-05 03:44 | XMS_ITS | Encounter Summary ---
Author Organization [facility] Address [address] [facility] [place] [address] Care Team Providers Care Group Account Director Name Role Phone Unavailable Primary Care Provider Unavailabl e Encounter Details Date Type Department Care Team (Late st Contact Info) Description 10/30/2022 Lab Requisition [facility] Derm[facility] Lab [address] [facility] [place] [phone] Chris Snyder MD [address] [address] [place] [address] Social History Tobacco Use Types Packs/Day Years [...] AM CDT) Case Report Dermatopathology Report Case: [id number] Authorizing Provider: Chris Snyder MD Collected: 10/30/2022 03:33 AM Ordering Location: [facility] DermPath Lab Received: 11/02/2022 06:06 AM Pathologist: Jody Thomas MD Specimen: Skin, right volar FA 3 4:32 PM CDT DERMATOPATHOLOGY LABORATORY Final Diagnosis Specimen A. SKIN, right volar FA: SUBACUTE SPONGIOTIC DERMATITIS (L30.8) (see microscopic description and comment) 3 4:32 PM CDT DERMATOPATHOLOGY LABORATORY at 1632 CDT Clinical History PMLE vs Eczema vs Allergic contact (ACD) Path#[id number] 3 4:32 PM CDT DERMATOPATHOLOGY LABORATORY Gross [...] characteristic determined by the Dermatopathology Laboratory at [facility], directed by Dr. Irasema Caban. These tests need not be, and therefore are not, approved by the [place] Food and Drug Administration. The tests are used for clinical purposes. Billing Codes Specimen Charges Stain Charges 94475 1 35613 1 3 4:32 PM CDT DERMATOPATHOLOGY LABORATORY Embedded Images 3 4:32 PM CDT DERMATOPATHOLOGY LABORATORY Pathology/Cytolo gy TISSUE SPECIMEN FROM SKIN / Unknown 10/30/2022 3:33 AM CDT 11/02/2022 6:06 AM CDT us Chris Snyder MD LAB - PATHOLOGY/CYTOLOGY ORDER SERINA Final Result DERMATOPATHOLOGY LABORATORY [facility] - Department of Dermatology [address] [place] [address], [place] [phone] documented in this encounter Visit Diagnoses Not on filedocumented in this encounter
--- OUTSIDE RECORDS SUMMARY | 2025-01-05 03:44 | XMS_ITS | Clinical Summary ---
Author Organization [place] [address] [facility] Address [address] [place] [address] Care Team Providers Care Pulley Maintainer Name Role Phone Reese Prince MD Primary Care Provider [phone] Allergies Active Allergy Reactions Criticality Noted Date [...] 04/14/2021 Assessment & Plan (04/14/2021 2:16 PM TELEVISION TUBE INSPECTOR): Had history of appendicial mass in 2004 [...] (10/17/2019): Added automatically from request for surgery [id number] Primary osteoarthritis of left knee 08/22/2018 Vitamin D deficiency 12/16/2016 Degenerative disc disease, lumbar 07/22/2016 Generalized anxiety disorder 06/10/2016 Assessment & Plan (04/14/2021 2:16 PM TELEVISION TUBE INSPECTOR): Increased stress with pandemic and caring for [...] pain Assessment & Plan (04/14/2021 2:18 PM TELEVISION TUBE INSPECTOR): Well controlled. Continue current regimen. GERD (gastroesophageal reflux disease) 6 Benign prostate hyperplasia Assessment & Plan (04/14/2021 1:43 PM TELEVISION TUBE INSPECTOR): Follows with urology, Dr. Mcconnell, and on [...] on calories. Most people should eat between 2347-4420 calories to lose weight. Decrease your carbohydrate [...] Department Care Team Description 12/26/2024 2:15 PM TELEVISION TUBE INSPECTOR Office Visit [facility] Family Medicine at [address] [place] [address] Reese Prince MD Annual physical exam (Primary Dx); Mixed hyperlipidemia; Screening, heart disease, ischemic 12/15/2024 Orders Only [facility] Orthopedics and Sports Medicine [address] [place] [address] [address] [place] [address] David Smith MD Traumatic complete tear of left rotator cuff, subsequent encounter (Primary Dx); Primary osteoarthritis, left shoulder 12/12/2024 1:00 PM CDT Office Visit [facility] Orthopedics and Sports Medicine [address] [place] [address] [address] [place] [address] David Smith MD Traumatic complete tear of left rotator cuff, subsequent encounter (Primary Dx) 11/30/2024 12:27 PM CDT - 11/30/2024 11:59 PM CDT Hospital Encounter [facility] Diagnostic Imaging [address] [place] [address] Chronic left shoulder pain Discharge Disposition: Discharge to home or self care 11/30/2024 12:27 PM CDT - 11/30/2024 11:59 PM CDT Hospital Encounter [facility] ED CT [address] [place] [address] David Smith MD Chronic left shoulder pain Discharge Disposition: Discharge to home or self care 11/27/2024 Telephone [facility] Orthopedics and Sports Medicine [facility] [address] [place] [address] Ney Roberts PA 11/06/2024 2:30 PM CDT Office Visit [facility] Orthopedics and Sports Medicine [facility] [address] [place] [phone] Mariajose Perkins, JEANA Primary tricompartmental osteoarthritis of left knee; Effusion of left knee from Last 3 Months Immunizations Immunization Administration [...] on file Legal Sex Male 7:18 PM TELEVISION TUBE INSPECTOR Gender Identity Not on file Sexual Orientation Not on file Last Filed Vital Signs Vital Sign Reading Time Taken Comments Blood Pressure 138/78 12/26/2024 2:27 PM TELEVISION TUBE INSPECTOR Pulse 73 12/26/2024 2:27 PM TELEVISION TUBE INSPECTOR Temperature 36.7 C (98 F) 12/26/2024 2:27 PM TELEVISION TUBE INSPECTOR Respiratory Rate 16 12/26/2024 2:27 PM TELEVISION TUBE INSPECTOR Oxygen Saturation 99% 12/26/2024 2:27 PM TELEVISION TUBE INSPECTOR Inhaled Oxygen Concentration - - Weight 91.8 kg (202 lb 6.4 oz) 12/26/2024 2:27 P M TELEVISION TUBE INSPECTOR Height 180.3 cm (5' 11) 12/26/2024 2:27 PM TELEVISION TUBE INSPECTOR Body Mass Index 28.23 12/26/2024 2:27 PM TELEVISION TUBE INSPECTOR Plan of Treatment Upcoming Encounters Date Type Department Care Team (Latest Contact Info) Description 03/19/2025 7:30 AM TELEVISION TUBE INSPECTOR Hospital Encounter [facility] OR [address] [place] [address] David Smith MD [address] [place] [address] DR RODRIGUEZ [address] [place] [address] 03/19/2025 7:30 AM TELEVISION TUBE INSPECTOR - 03/19/2025 10:05 AM TELEVISION TUBE INSPECTOR Surgery [address] [address] David Smith MD [address] [place] [address] DR RODRIGUE[address] [place] [address] REVERSE LEFT TOTAL SHOULDER ARTHROPLASTY Scheduled Procedures Name Priority Associated Diagnoses Date/Ti me ARTHROPLASTY SHOULDER - REVERSE TOTAL Traumatic rotator cuff tear, left, subsequent encounter 03/19/2025 7:30 AM TELEVISION TUBE INSPECTOR Health Maintenance Due Date Last Done Comments [...] Procedure Name Priority Date/Time Associated Diagnosis Comments [place] ARTHROCENTESIS ASPIR&/INJ MAJOR JT/BURSA W/O US Routine 12/12/2024 1:00 PM CDT Traumatic complete tear of left rotator cuff, subsequent encounter CT ARTHROGRAM SHOULDER LEFT W CONTRAST Schedule Routine, Read Routine (OP Routine) 11/30/2024 2:11 PM CDT Chronic left shoulder pain INJECTION SHOULDER LEFT ARTHRO ONLY Schedule Routine, Read Routine (OP Routine) 11/30/2024 1:40 PM CDT Chronic left shoulder pain MN ARTHROCENTESIS ASPIR&/INJ MAJOR JT/BURSA W/O US Routine 11/06/2024 2:30 PM CDT Primary tricompartmental osteoarthritis of left knee [place] ARTHROCENTESIS ASPIR&/INJ MAJOR JT/BURSA W/O US Routine 11/06/2024 2:30 PM CDT Effusion of left knee PSA SCREEN Routine 07/26/2024 10:04 AM CDT Essential (primary) hypertension COLONOSCOPY Routine 03/14/2024 10:29 AM TELEVISION TUBE INSPECTOR from Last 3 Months or Most Recently Relevant to Health Maintenance Results * [place] ARTHROCENTESIS ASPIR&/INJ MAJOR JT/BURSA W/O US (12/12/2024 [...] the procedure well with no immediate complications David Smith MD IN CLINIC/BEDSIDE ORDERABL ES [...] by Musa Youssef M.D. T: Report ID: [id number] Reading Location: [id number] Procedure Note Musa Youssef MD - 11/30/2024 [...] by Musa Youssef M.D. T: Report ID: [id number] Reading Location: [place] [address] MD IM CT PROCEDURES Final Re sult * Injection [...] was obtained. Prior to beginning the procedure, [place] Protocol was performed to confirm the patient's [...] signed by Gerald ARELLANO T: Report ID: [id number] Reading Location: [id number] Procedure Note Gerald Poole MD - 11/30/2024 EXAM DESCRIPTION: 1. Left glenohumeral joint injection for arthrography 2. Fluoroscopic guidance for needle placement HISTORY: Chronic left shoulder pain. , Pre CT arthrogram RADIATION DOSE: Dose: 10.50 mGy Reference Air Kerma (Ka,r) TECHNIQUE: The risks, benefits and alternatives were discussed with the patient. Informed consent was obtained. Prior to beginning the procedure, [place] Protocol was performed to confirm the patient's [...] 4:47 PM - Electronically signed by Gerald Poole M.D. RB T: Report ID: [id number] Reading Location: [id number] us David Smith MD IMG XR PROCEDURES Final Re sult * [place] ARTHROCENTESIS ASPIR&/INJ MAJOR JT/BURSA W/O US (11/06/2024 [...] procedure well with no immediate complications us Mariajose Perkins CUTTER AND EDGE TRIMMER IN CLINIC/BEDSIDE ORDERABLE S Final Result * [place] ARTHROCENTESIS ASPIR&/INJ MAJOR JT/BURSA W/O US (11/06/2024 2:30 PM CDT) David Oliver MD - 11/06/2024 2:30 PM CDT David [...] procedure well with no immediate complications us Mariajose Perkins CUTTER AND EDGE TRIMMER IN CLINIC/BEDSIDE ORDERABLE S Final Result * PSA screen (07/26/2024 10:04 AM CDT) PSA 2.02 < OR = 4.00 ng/mL [facility] Comment: The total PSA value from [...] LAB BLOOD ORDERABLES Final Re sult [facility] [id number] [address] [place] [place] [id number] * Colonoscopy (03/14/2024 10:29 AM TELEVISION TUBE INSPECTOR) Anatomical Region Laterality Modality Other Historical Provider ENDOSCOPY PROCEDURES Sariah l Result from Last 3 Months or Most Recently Relevant to Health Maintenance Insurance [place] [facility] Advance Directives For more information, please contact: [phone] * Full Code (Latest Code Status on File) Date Activated Date Inactivated Comments 07/02/2021 12:49 PM 07/04/2021 9:16 PM Care Teams Pulley Maintainer Relationship Specialty Start Date End Date Reese Prince MD [address] [place] [address] PCP - General Family Medicine 12/26/24
--- OUTSIDE RECORDS SUMMARY | 2025-01-05 03:44 | XMS_ITS | Encounter Summary ---
Author Organization [facility] Facility Care Team Providers Care Crematory Operator Name Role Phone Unknown, Notinfile Primary Care Provider Unavail able Reese Prince MD Primary Care Provider [phone] Juana Willson Primary Care Provider + Reese Prince MD Primary Care Provider [phone] Encounter Details Date Type Department Care Team (Latest Contact Info) Description 07/10/2015 Orders Only [facility] CLINCONV ProviderAlban MD [address] [place] [address] Social History Tobacco Use Types Packs/Day Years Used Date Smoking Tobacco: Never Assessed Sex and Gender Information Value Date Recorded Sex Assigned at Not on file Legal Sex Male 7:18 PM AIR TESTER Gender Identity Not on file Sexual Orientation Not on file documented as of this encounter Plan of Treatment Upcoming Encounters Date Type Department Care Team (Latest Contact Info) Description 03/19/2025 7:30 AM AIR TESTER Hospital Encounter [facility] OR [address] [place] [address] David Smith MD [address] [place] [address] DR RODRIGUEZ [address] [place] [address] 03/19/2025 7:30 AM AIR TESTER - 03/19/2025 10:05 AM AIR TESTER Surgery [facility] OR [address] [place] [address] David Smith MD [address] [place] [address] DR RODRIGUEZ [address] [place] [address] REVERSE LEFT TOTAL SHOULDER ARTHROPLASTY Scheduled Procedures Name Priority Associated Diagnoses Date/Ti me ARTHROPLASTY SHOULDER - REVERSE TOTAL Traumatic rotator cuff tear, left, subsequent encounter 03/19/2025 7:30 AM AIR TESTER documented as of this encounter Procedures Procedure [...] on filedocumented in this encounter Care Teams Crematory Operator Relationship Specialty Start Date End Date Unknown, Notinfile PCP - General 01/22/17 02/23/17 Reese Prince MD PCP - General 02/24/17 03/23/18 Juana Willson PA PCP - General 03/24/18 06/11/19 Reese Prince MD [address] [facility] [address] RODRIGUEZ [address] [place] [address] PCP - General Family Medicine 12/26/24 documented as of this encounter
--- OUTSIDE RECORDS SUMMARY | 2025-01-05 03:44 | XMS_ITS | Encounter Summary ---
Author Organization [facility] Address [address] [place] [address] Phone Care Team Providers Care Prison Classification Counselor Name Role Phone Reese Prince MD Primary Care Provider [phone] Juana Willson Primary Care Provider + Reese Prince MD Primary Care Provider [phone] Encounter Details Date Type Department Care Team (Latest Contact Info) Description 03/13/2017 Orders Only [facility] CONVERSION Scanning, Provider Social History Tobacco Use Types Packs/Day Years Used Date Smoking Tobacco: Never Assessed Sex and Gender Information Value Date Recorded Sex Assigned at Not on file Legal Sex Male 7:18 PM HOSE OPERATOR Gender Identity Not on file Sexual Orientation Not on file documented as of this encounter Plan of Treatment Upcoming Encounters Date Type Department Care Team (Latest Contact Info) Description 03/19/2025 7:30 AM HOSE OPERATOR Hospital Encounter [facility] OR [address] [place] [phone] David Smith MD [address] [place] [address] DR RODRIGUEZ [address] [place] [phone] 03/19/2025 7:30 AM HOSE OPERATOR - 03/19/2025 10:05 AM HOSE OPERATOR Surgery [facility] OR [address] [place] [phone] David Smith MD [address] [place] [address] DR RODRIGUEZ [address] [place] [phone] REVERSE LEFT TOTAL SHOULDER ARTHROPLASTY Scheduled Procedures Name Priority Associated Diagnoses Date/Ti me ARTHROPLASTY SHOULDER - REVERSE TOTAL Traumatic rotator cuff tear, left, subsequent encounter 03/19/2025 7:30 AM HOSE OPERATOR documented as of this encounter Procedures Procedure Name Priority Date/Time Associated Diagnosis Comments VASCULAR LABORATORY REPORT 03/13/2017 4:50 PM HOSE OPERATOR documented in this encounter Results * VASCULAR LABORATORY REPORT (03/13/2017 4:50 PM HOSE OPERATOR) Anatomical Region Laterality Modality Ultrasound us Provider Scanning CV VASCULAR PROCEDURES Final R esult documented in this encounter Visit Diagnoses Not on filedocumented in this encounter Care Teams Prison Classification Counselor Relationship Specialty Start Date End Date Reese Prince MD PCP - General 02/24/17 03/23/18 Juana Willson PA PCP - General 03/24/18 06/11/19 Reese Prince MD [address] [facility] [address] RODRIGUEZ [address] [place] [id number] PCP - General Family Medicine 12/26/24 documented as of this encounter
--- NOTE | 2025-01-05 08:00 | WPDHPUPDATE1 ---
History and Physical Update Update Date/Time: 01/05/25 08:00 History and Physical has been reviewed, including an updated exam of the patient. There are NO changes in the patient's condition. Risks, benefits, and alternatives have been discussed and questions answered. Patient agrees to proceed with procedure.
[2025-01-05] MEDS: LACTATED RINGERS 1,000 ML 30 ML IV CONT (09:00)
--- NOTE | 2025-01-05 09:14 | ECG_ITS ---
Test Date: 2025-01-05 09:59:32 Measurements Intervals Ovalo Rate: 65 P: 25 NH: 178 QRS: -22 QRSD: 109 T: 17 QT: 387 QTc: 403 Interpretive Statements SINUS RHYTHM LOW QRS VOLTAGE IN PRECORDIAL LEADS [QRS DEFLECTION < 1.0 mV IN CHEST LEADS] POSSIBLE ANTERIOR MYOCARDIAL INFARCTION , OF INDETERMINATE AGE [30 ms Q WAVE IN V3/V4, OR R < 0.2 mV IN V4] ABNORMAL ECG Compared to ECG 01/03/2025 14:33:26 NO SIGNIFICANT DIFFERENCE Electronically Signed On 01-05-2025 11:26:15 [employer]NACE [employer]PER by Musa Amanda M.D.
[2025-01-05 10:00] VITALS: BP 142/92; PULSE 74; RESP 16; TEMP 37; O2SAT 99
--- NOTE | 2025-01-05 10:31 | WPDANESEPPF ---
Anes - Initial Pre Proc Eval Procedure: Operation Date: 01/05/25 10:30 Proposed Procedures p Cystoscopy, Left Ureteroscopy, Holmium Laser Lithotripsy, Left Stone Extraction, Left Retrograde Pyelogram, Left Ureteral Stent Placement - Jermain Mcconnell MD Date/Time: 01/05/25 10:31 Surgeon: Jermain Mcconnell MD Pre Op Diagnosis: Left Ureteral Calculus Patient Data Age: 64 Gender: M Height: 1.8 m Weight: 92 kg Allergies Allergy/AdvReac Type Severity Reaction Status Date / Time naproxen Allergy Intermediate HIVES, Verified 01/03/25 09:38 SWELLING Home Medications ?Medication ?Instructions ?Recorded ?Confirmed ?Type acetaminophen 500 mg capsule 1,000 mg PO ONCE 01/03/25 01/03/25 History amlodipine 5 mg-olmesartan 20 mg 2 tablet PO DAILY 01/03/25 01/03/25 History tablet finasteride 5 mg tablet 5 mg PO DAILY 01/03/25 01/03/25 History omeprazole 20 mg capsule,delayed 20 mg PO DAILY 01/03/25 01/03/25 History release rosuvastatin 5 mg tablet 5 mg PO DAILY 01/03/25 01/03/25 History Patient hx anesthesia problems: none Family hx anesthesia problems: none Results Review: All pre-operative results and documents have been reviewed as part of the pre-operative evaluation. [facility] Past Medical History Medical History (Updated 01/05/25 @ 10:31 by Fan Mustafa MD) Overweight Hyperlipidemia HTN (hypertension) Surgical History Surgical History (Updated 01/05/25 @ 10:31 by Fan Mustafa MD) Hx of abdominal surgery Social History Social History Smoking status: Never smoker Second hand tobacco smoke exposure: No Alcohol intake: current Alcohol use details: 2 per month Substance use: never Living arrangements: with family Spiritual care concerns: No Anes - Eval Final PreProcedure Day of Procedure 01/05/25 10:31 Patient weight: overweight Heart: regular rate and rhythm Lungs: clear to auscultation Airway: Mallampati scale class II Neurological: alert and oriented Last oral intake: >/= 8 hours ASA classification: II Emergent: no Anesthetic plan: proceed Anesthesia type and monitoring: general LMA and standard monitoring Results Review: All pre-operative results and documents have been reviewed as part of the pre-operative evaluation. Informed Consent: The patient's anesthetic plan and its attendant risks and benefits were discussed with the patient/family/POA. Questions were solicited and answers provided to the satisfaction of the patient/family/POA.
[2025-01-05] MEDS: ceFAZolin 2 GM in SODIUM CHLORIDE 0.9% IV 50 ML 100 ML IVPB (10:38)
[2025-01-05] MEDS: LIDOCAINE 2% GEL UROJET 10 ML PKG MUCOUS MEM (10:57)
--- NOTE | 2025-01-05 10:58 | S_PTH ---
PATIENT: Neeraj Angeles LOC: [facility] U#:[id number] AGE/SX: 64/M ROOM: RE01/05/[address]: Jermain Mcconnell MD : 1960 BED: DIS: 01/05/2025 SPEC #: [id number] RECD: 01/05/25 14:11 STATUS: PAVITHRA REQ #: [id number] CHEVY: 01/05/25 10:[address]: Jermain Mcconnell DEPT: [facility] Surgical RECD BY: Kely Quick ENTERED: 01/05/25 14:11 SP TYPE: Surgical OTHR DR: Reese Prince, Tissues: A - Stone Procedures: Gross Exam Level 1 Crystalline Analysis
[2025-01-05 11:04] VITALS: BP 152/91; PULSE 66; RESP 12; TEMP 36.2; O2SAT 100
[2025-01-05 11:20] VITALS: BP 144/92; PULSE 63; RESP 18; O2SAT 100
--- NOTE | 2025-01-05 11:30 | W.PM.PROC2 ---
Procedure Note - Detailed Date of Procedure 01/05/25 Pre-op Diagnosis Left Ureteral Calculus Post-op Diagnosis Same Procedure Performed Cystoscopy, left ureteroscopy with stone extraction, left retrograde pyelogram Surgeon Jermain Mcconnell MD Anesthesia General Description of Procedure The patient was brought to the operative suite where he is prepped and draped in a routine sterile fashion while in the dorsal lithotomy position after the uneventful induction of a general LMA anesthetic. A 19F rigid cystoscope was placed in the bladder. There are no urethral strictures. His prostatic urethra measures, approximately, 2.0cm with no median lobe enlargement. The bladder mucosa was endoscopically normal without hyperemia or neoplasm. There was a single, orthotopic ureteral orifice bilaterally. A 0.035 glidewire was advanced into the right renal pelvis under fluoroscopy. The distal ureter was dilated with an 8F/10F ureteral dilator. Ureteroscopy was undertaken with a short, tapered, semi-rigid ureteroscope and the stone was extracted with ease using a 1.9F disposable stone basket. Due to the ease of this manipulation I opted not to place a ureteral stent. Retrograde pyelography through the ureteral scope showed no significant edema, obstruction or other stones. The patient's bladder was emptied and was taken to the recovery room having tolerated this procedure well. Urine Output 200 Pathology None sent Complications No immediate complications Disposition PACU
[2025-01-05 11:35] VITALS: BP 156/98; PULSE 55; RESP 16; O2SAT 100
[2025-01-05 11:38] VITALS: BP 166/93; PULSE 51; RESP 16
[2025-01-05 12:05] VITALS: BP 164/82; PULSE 49; RESP 16
== END 2025-01-05 12:24 | disposition home or self-care (01) ==
PROVIDERS: PCP Family Medicine; Visit Provider Urology
PROC: (CPT 52352; principal; 2025-01-05 10:30)
DX: N20.1 Calculus of ureter (principal); N52.9 Male erectile dysfunction, unspecified; R31.29 Other microscopic hematuria; N40.1 Benign prostatic hyperplasia with lower urinary tract symptoms; I10 Essential (primary) hypertension; E78.00 Pure hypercholesterolemia, unspecified; F32.A Depression, unspecified; R39.12 Poor urinary stream; Z98.890 Other specified postprocedural states; Z90.49 Acquired absence of other specified parts of digestive tract; Z87.11 Personal history of peptic ulcer disease; Z80.0 Family history of malignant neoplasm of digestive organs; Z82.49 Family history of ischemic heart disease and other diseases of the circulatory system
CPT/HCPCS: 52352; 74420; 82365; 88300; 93005; J0690; C1758; C1769; J2003; J2405; J2704; J3010; J7120; Q9966